=== PATIENT | male | born 1930 | race Caucasian/White ===

== ENCOUNTER 2016-09-17 13:33 | Emergency (ER) | payer MEDICARE, BC ==
[~2016-09-17] VITALS: Ht 188 cm; Wt 65.8 kg
[~2016-09-17 13:33] MED LIST: ACYCLOVIR400 MG ORAL; ARICEPT10 MG ORAL; COLACE100 MG ORAL; COREG3.125 MG ORAL; FOLIC ACID1 MG ORAL; MUPIROCIN22 GM TOPIC; SIMVASTATIN40 MG ORAL; VYTORIN 10-101 EACH ORAL; WARFARIN SODIUM3 MG ORAL; ZYPREXA5 MG ORAL
[2016-09-17 15:22] VITALS: BP 128/72
--- NOTE | 2016-09-17 15:43 | Emergency Room Report ---
History of Present Illness General Chief Complaint: General Complaint Source: Significant Other, Medical Record Present Illness HPI Patient pulled out his G tube. H/O dementia. No reported fevers, vomiting, diarrhea. Occasional agitation. Aphasic - further history unavailable. Allergies: Coded Allergies: No Known Allergies (Unverified , 04/29/14) Patient History Limited by: medical condition Past Medical History: see triage record Social History Narrative [facility] Reviewed Nursing Documentation: PMH: Agreed, PSxH: Agreed Nursing Documentation-PMH Hx Cardiac Problems: Yes Hx Hypertension: Yes Hx Cancer: No Hx Gastrointestinal Problems: Yes Hx Neurological Problems: Yes Hx Alzheimer's Disease: Yes Hx Parkinson's Disease: Yes Hx Weakness: Yes Review of Systems All Other Systems: limited Physical Exam Vital Signs Date Time Temp Pulse Resp B/P Pulse Ox O2 Delivery O2 Flow Rate FiO2 09/17/16 13:18 98.1 78 16 10/80 98 Room Air General Appearance: Chronically Ill Head: normocephalic, atraumatic Eyes: bilateral eye PERRL, bilateral eye normal inspection ENT: moist mucus membranes - poor dentition Neck: full range of motion, supple Respiratory: no respiratory distress, speaking full sentences Cardiovascular #1: regular rate, rhythm Cardiovascular #2: 2+ radial (L) Gastrointestinal: normal bowel sounds, soft, non-distended, other - g tube site clean - some proud tissue Musculoskeletal: no calf tenderness, decreased range of mation - LE with some contractures Neurologic: alert, motor weakness - LE but able to move arms with occ tremor Psychiatric: mood/affect normal - with occasional anxiety Skin: no rash Procedures Additional Procedure Procedure Narrative G tube placement - 16 ga 20 cc balloon Insertion with ease. Medical Decision Making Diagnostic Impression: Primary Impression: Gastrostomy tube replacement Additional Impression: Dementia Qualified Codes: F03.90 - Unspecified dementia without behavioral disturbance ER Course G tube had been pulled. No active bleeding or trauma observed. G tube replaced. Tolerated well. Not toxic or dehydrated. Patient stable for outpatient observation and treatment. Other X-Ray Diagnostic Results Other X-Ray Diagnostic Results : X-Ray Ordered: abd gastgrrograffin Findings: other - no leaks, tube in stomach, NSBGP Number of Views: 1 Last Vital Signs Date Time Temp Pulse Resp B/P Pulse Ox O2 Delivery O2 Flow Rate FiO2 09/17/16 18:21 98.1 84 16 120/69 99 Room Air Status: improved Disposition: XFER SNF Condition: Improved Bi Mar M.D. Sep 17, 2016 15:43
--- NOTE | 2016-09-17 16:44 | Diagnostic Imaging Report ---
Indication: Status post gastrostomy replacement Technique: Supine view of the abdomen after injection of water-soluble contrast into gastrostomy Comparison: 05/01/2014 Findings: Contrast opacifies the stomach and proximal small bowel. No contrast extravasation is demonstrated. The bowel gas pattern is unremarkable. Impression: Satisfactory position of gastrostomy tube
[2016-09-17 18:21] VITALS: BP 120/69
== END 2016-09-17 18:24 ==
LOC: EDBD 13:33 → EMR 17:18
DX: Z43.1 Encounter for attention to gastrostomy (principal); G30.9 Alzheimer's disease, unspecified; F02.80 Dementia in other diseases classified elsewhere, unspecified severity, without behavioral disturbance, psychotic disturbance, mood disturbance, and anxiety; I10 Essential (primary) hypertension; G20 Parkinson's disease
CPT/HCPCS: 74000; 99283; Q9963

== ENCOUNTER 2018-12-15 13:10 | Inpatient (IN) | payer BC, MEDICARE ==
[~2018-12-15] VITALS: Ht 167.6 cm; Wt 68.9 kg
--- NOTE | 2018-12-15 13:05 | NUR ---
ED Nurse Note: Patient brought in by ambulance from [facility] due to jaundice noticed by the staff there today since this morning. patient is alert x0, eyes closed nonverbal, per EMS, that is patient's baseline. sclera is yellow on bilateral side. patient has gtube reported hx of htn gerd dyphagia anemia afib derilium and dementia
[2018-12-15 13:44] LABS: APPEARANCE,URINE SLIGHTLY CLOUDY; BILIRUBIN, URINE 2+ (NEGATIVE); COLOR,URINE BROWN; GLUCOSE, URINE (UA) NEGATIVE (NEGATIVE); HEMATOCRIT 42.1 % (42.0-52.0); HEMOGLOBIN 14.4 G/DL (14.2-18.0); KETONES,URINE NEGATIVE (NEGATIVE); LEUKOCYTE ESTERASE ,URINE 1+ (NEGATIVE); MEAN CORPUSCULAR VOLUME 92 FL (80-99); NITRITE,URINE NEGATIVE (NEGATIVE); PH,URINE 7 (4.5-8.0); PLATELET COUNT 71 K/UL (150-450); PROTEIN,URINE 2+ (NEGATIVE); RED BLOOD COUNT 4.56 M/UL (4.70-6.10); RED CELL DISTRIBUTION WIDTH 12.7 % (11.6-14.8); UROBILINOGEN,URINE 4 MG/DL (0.0-1.0); WHITE BLOOD COUNT 17.9 K/UL (4.8-10.8)
[2018-12-15 13:45] VITALS: BP 127/67
[2018-12-15] MEDS ORDERED: COMPAZINE5 MG GT (13:51)
[2018-12-15] MEDS ORDERED: MORPHINE S10 MG/5 ML SL (13:51)
[2018-12-15] MEDS ORDERED: BISACODYL10 M1 RC (13:51)
[2018-12-15] MEDS ORDERED: ACETAMINOPHEN120 MG RECTAL (13:51)
[2018-12-15] MEDS ORDERED: HYOSCYAMINE0.125 M1 SL (13:51)
[2018-12-15 13:52] LABS: ANION GAP 8 mmol/L (5-15); BLOOD UREA NITROGEN 22 mg/dL (7-18); CALCIUM 9.1 MG/DL (8.5-10.1); CARBON DIOXIDE 31 MMOL/L (21-32); CHLORIDE 103 MMOL/L (98-107); POTASSIUM 3.7 MMOL/L (3.5-5.1); SODIUM 141 MMOL/L (136-145)
[2018-12-15 13:53] LABS: AMMONIA 11 umol/L (11-32)
[2018-12-15 13:55] LABS: INR 1.1 (0.9-1.1)
[2018-12-15] MEDS ORDERED: Piperacillin/Tazobactam 3.375 GM in NS 110 ML IVPB ONE (14:00)
[2018-12-15 14:09] LABS: ALANINE AMINOTRANSFERASE 164 U/L (12-78); ALBUMIN 2.7 G/DL (3.4-5.0); ALBUMIN/GLOBULIN RATIO 0.5 (1.0-2.7); ALKALINE PHOSPHATASE 200 U/L (46-116); ASPARTATE AMINO TRANSFERASE 80 U/L (15-37); BILIRUBIN,TOTAL 5.6 MG/DL (0.2-1.0); CREATINE KINASE 21 U/L (26-308)
[2018-12-15 14:13] LABS: BILIRUBIN,DIRECT 4.7 MG/DL (0.0-0.3)
[2018-12-15 14:16] VITALS: BP 126/73
--- NOTE | 2018-12-15 16:57 | Emergency Room Report ---
History of Present Illness General Chief Complaint: General Complaint Source: Medical Record, EMS Present Illness HPI Patient presents emergency department today complaining of jaundice. Patient apparently was noted to have elevated heart rate and was more jaundiced than usual. Patient baseline is nonverbal. Patient was brought here further evaluation. Patient is full code. No other history is available. Symptoms noted to be severe per caregivers.No other modifying factors. No other associated signs and symptoms. No other complaints were noted. Allergies: Coded Allergies: No Known Allergies (Unverified , 04/29/14) Patient History Past Medical History: HTN, other - Alzheimer's disease, Parkinson's disease Past Surgical History: none Social History: Denies: smoking, alcohol use, drug use Reviewed Nursing Documentation: PMH: Agreed; PSxH: Agreed Nursing Documentation-PMH Past Medical History: No History, Except For Hx Hypertension: Yes Hx Cancer: No Hx Gastrointestinal Problems: Yes Hx Alzheimer's Disease: Yes Hx Parkinson's Disease: Yes Hx Weakness: Yes Review of Systems All Other Systems: limited - Poor mental status Physical Exam Vital Signs Date Time Temp Pulse Resp B/P (MAP) Pulse Ox O2 Delivery O2 Flow Rate FiO2 12/15/18 13:01 99.7 119 24 125/68 94 Nasal Cannula 1.0 Sp02 EP Interpretation: reviewed, normal General Appearance: Stupor Head: atraumatic Eyes: bilateral eye normal inspection ENT: dry mucus membranes Neck: normal inspection, full range of motion, supple, no bony tend Respiratory: normal inspection, lungs clear, normal breath sounds, no respiratory distress, no retraction Cardiovascular #1: regular rate, rhythm, no edema Gastrointestinal: normal inspection, normal bowel sounds, soft, no hernia Genitourinary: other Musculoskeletal: normal range of motion, decreased range of motion Neurologic: other - Unable to assess Psychiatric: other - Unable to assess Skin: normal inspection, normal color, no rash Procedures Critical Care Time Critical Care Time Patient had a critical medical condition which untreated could potentially result in life or limb threatening injury. Total critical care time excluding procedures was approximately 45 minutes. Medical Decision Making Diagnostic Impression: Primary Impression: Jaundice Additional Impressions: Tachycardia Dehydration Severe sepsis ER Course Patient presents emergency department today with jaundice and tachycardia. Differential considerations include sepsis, dehydration, electrolyte abnormality just name a few.Given the severity of the patient's presentation I felt this is a highly complex patient. This patient required extensive workup. Patient's laboratory workup shows an elevated white blood cell count. Patient had elevated bilirubin. Because this patient was started on IV antibiotics. Patient was given fluid boluses per are this severe sepsis protocol. Patient was given broad-spectrum IV antibiotics. Case will be admitted to the telemetry unit for further treatment. Case was discussed with Dr. Ronny Zapata for admission. Labs Test 12/15/18 13:22 White Blood Count 17.9 K/UL (4.8-10.8) Red Blood Count 4.56 M/UL (4.70-6.10) Hemoglobin 14.4 G/DL (14.2-18.0) Hematocrit 42.1 % (42.0-52.0) Mean Corpuscular Volume 92 FL (80-99) Mean Corpuscular Hemoglobin 31.6 PG (27.0-31.0) Mean Corpuscular Hemoglobin Concent 34.3 G/DL (32.0-36.0) Red Cell Distribution Width 12.7 % (11.6-14.8) Platelet Count 71 K/UL (150-450) Mean Platelet Volume 13.9 FL (6.5-10.1) Neutrophils (%) (Auto) % (45.0-75.0) Lymphocytes (%) (Auto) % (20.0-45.0) Monocytes (%) (Auto) % (1.0-10.0) Eosinophils (%) (Auto) % (0.0-3.0) Basophils (%) (Auto) % (0.0-2.0) Differential Total Cells Counted 100 Neutrophils % (Manual) 83 % (45-75) Lymphocytes % (Manual) 6 % (20-45) Monocytes % (Manual) 11 % (1-10) Eosinophils % (Manual) 0 % (0-3) Basophils % (Manual) 0 % (0-2) Band Neutrophils 0 % (0-8) Platelet Estimate Decreased Platelet Morphology Giant Platelets Occasional Red Blood Cell Morphology Normal Prothrombin Time 11.3 SEC (9.30-11.50) Prothromb Time International Ratio 1.1 (0.9-1.1) Activated Partial Thromboplast Time 33 SEC (23-33) Urine Color Brown Urine Appearance Slightly cloudy Urine pH 7 (4.5-8.0) Urine Specific Peterson 1.010 (1.005-1.035) Urine Protein 2+ (NEGATIVE) Urine Glucose (UA) Negative (NEGATIVE) Urine Ketones Negative (NEGATIVE) Urine Blood 4+ (NEGATIVE) Urine Nitrite Negative (NEGATIVE) Urine Bilirubin 2+ (NEGATIVE) Urine Ictotest Positive (NEGATIVE) Urine Urobilinogen 4 MG/DL (0.0-1.0) Urine Leukocyte Esterase 1+ (NEGATIVE) Urine RBC 20-30 /HPF (0 - 0) Urine WBC 2-4 /HPF (0 - 0) Urine Squamous Epithelial Cells Occasional /LPF Urine Bacteria Occasional /HPF (NONE) Sodium Level 141 MMOL/L (136-145) Potassium Level 3.7 MMOL/L (3.5-5.1) Chloride Level 103 MMOL/L (98-107) Carbon Dioxide Level 31 MMOL/L (21-32) Anion Gap 8 mmol/L (5-15) Blood Urea Nitrogen 22 mg/dL (7-18) Creatinine 1.0 MG/DL (0.55-1.30) Estimat Glomerular Filtration Rate mL/min (>60) Glucose Level 145 MG/DL (74-106) Lactic Acid Level 1.80 mmol/L (0.4-2.0) Calcium Level 9.1 MG/DL (8.5-10.1) Total Bilirubin 5.6 MG/DL (0.2-1.0) Direct Bilirubin 4.7 MG/DL (0.0-0.3) Aspartate Amino Transf (AST/SGOT) 80 U/L (15-37) Alanine Aminotransferase (ALT/SGPT) 164 U/L (12-78) Alkaline Phosphatase 200 U/L (46-116) Ammonia 11 umol/L (11-32) Total Creatine Kinase 21 U/L (26-308) Troponin I 0.005 ng/mL (0.000-0.056) Total Protein 8.2 G/DL (6.4-8.2) Albumin 2.7 G/DL (3.4-5.0) Globulin 5.5 g/dL Albumin/Globulin Ratio 0.5 (1.0-2.7) Lipase 1152 U/L (73-393) EKG Diagnostic Results Rate: tachycardiac Rhythm: other - Atrial fibrillation Rhythm Strip Diag. Results EP Interpretation: yes Rate: 130 Rhythm: no PVC's, no ectopy, other - Atrial fibrillation Last Vital Signs Date Time Temp Pulse Resp B/P (MAP) Pulse Ox O2 Delivery O2 Flow Rate FiO2 12/15/18 14:17 117 22 Nasal Cannula 1.0 12/15/18 14:16 101.4 126/73 98 Status: improved Disposition: ADMITTED INPATIENT Condition: Serious Referrals: Luis Donovan MD (PCP) Carmine Mathias MD Dec 15, 2018 16:57
[2018-12-15] MEDS ORDERED: ACETAMINOPHEN650 MG RECTAL (17:38)
[2018-12-15] MEDS ORDERED: DOCUSATE SODIU100 M2 GT (17:43)
[2018-12-15] MEDS ORDERED: MORPHINE S10 MG/0.5 SL (17:59)
--- NOTE | 2018-12-15 19:15 | NUR ---
NURSE NOTES: Received pt from ED, REA Yen. Pt awake and in no acute distress. classroom monitor placed on patient. IV intact and patent. Bed in lowest position and call light within reach. Oriented pt to room and floor.
[2018-12-15 19:25] VITALS: BP 123/69
--- NOTE | 2018-12-15 20:15 | Consultation ---
History of Present Illness General Date patient seen: Dec 15, 2018 Chief Complaint: General Complaint Present Illness HPI This is a 88-year-old male with multiple medical comorbidities who presented to the emergency department for worsening jaundice which was noted by his caregivers. Patient unable to participate in exam given baseline medical condition. Caregivers noted patient was becoming more jaundiced and had him evaluated in the emergency department. In ED he was noted to be febrile, tachycardic, leukocytosis, abnormal LFTs with elevated direct and indirect bilirubin. Likely consistent with cholecystitis/choledocholithiasis. Surgery called to evaluate. Patient seen, patient evaluated, chart reviewed. Allergies: Coded Allergies: No Known Allergies (Unverified , 04/29/14) Medication History Scheduled Docusate Sodium (Docusate Sodium), 100 MG GT TWICE A DAY, (Reported) Scheduled PRN Acetaminophen* (Acetaminophen*), 650 MG RECTAL DAILY PRN for TEMP >101, ( Reported) Bisacodyl (Bisacodyl), 10 MG RC DAILY PRN for Constipation, (Reported) Hyoscyamine Sulfate (Hyoscyamine Sulfate), 0.125 MG SL Q4HR PRN for SECRETION, ( Reported) Morphine Sulfate (Morphine Sulfate), 10 MG SL Q1HR PRN for PAIN/DYSPNEA (RR>26), (Reported) Prochlorperazine Maleate (Compazine), 10 MG GT Q6HR PRN for Nausea & Vomiting, ( Reported) Discontinued Medications Acetaminophen* (Tylenol*), 650 MG RECTAL Q4H PRN for Mild Pain/Temp > 100.5, ( Reported) Discontinued Reason: Prescription changed Carvedilol (Coreg), 6.25 MG ORAL EVERY 12 HOURS Discontinued Reason: Therapy completed Donepezil Hcl* (Aricept*), 10 MG ORAL DAILY, (Reported) Discontinued Reason: Therapy completed Ezetimibe/Simvastatin 10-10MG (Vytorin 10-10 Mg Tablet), 1 TAB ORAL DAILY, ( Reported) Discontinued Reason: Therapy completed Folic Acid* (Folic Acid*), 2 MG ORAL DAILY Discontinued Reason: Therapy completed Morphine 10mg/5ml Oral Soln* (Morphine 10mg/5ml Oral Soln*), 0.5 ML SL Q1HR PRN for PAIN/DYSPNEA (RR>26), (Reported) Discontinued Reason: Prescription changed Patient History Limited by: medical condition History Provided By: Medical Record, Caregiver, PMD Healthcare decision maker Resuscitation status Advanced Directive on File Past Medical/Surgical History Past Medical/Surgical History: (1) Hypernatremia (2) Alteration consciousness (3) Hypernatremia (4) Renal failure (ARF), acute on chronic (5) Encephalopathy (6) Chronic atrial fibrillation (7) Coagulopathy (8) Subdural hematoma (9) Dysphagia (10) Dementia (11) Dehydration (12) Jaundice (13) Tachycardia (14) Severe sepsis Review of Systems ROS Narrative Cannot obtain given patient's baseline medical status Physical Exam General Appearance: no apparent distress Lines, tubes and drains: peripheral HEENT: normocephalic, other - Jaundice Neck: normal inspection Respiratory/Chest: no respiratory distress, no accessory muscle use Cardiovascular/Chest: tachycardia Abdomen: soft, decreased bowel sounds, tender - exhibits discomfort on RUQ palpation , feeding tube Extremities: normal inspection Skin Exam: warm/dry Last 24 Hour Vital Signs Date Time Temp Pulse Resp B/P (MAP) Pulse Ox O2 Delivery O2 Flow Rate FiO2 12/15/18 19:21 99.4 102 22 115/68 98 Nasal Cannula 1.0 12/15/18 14:17 117 22 Nasal Cannula 1.0 12/15/18 14:16 101.4 112 21 126/73 98 Nasal Cannula 1.0 12/15/18 13:45 99.7 117 22 127/67 98 Nasal Cannula 1.0 12/15/18 13:01 99.7 119 24 125/68 94 Nasal Cannula 1.0 Laboratory Tests Test 12/15/18 13:22 White Blood Count 17.9 K/UL (4.8-10.8) H Red Blood Count 4.56 M/UL (4.70-6.10) L Hemoglobin 14.4 G/DL (14.2-18.0) Hematocrit 42.1 % (42.0-52.0) Mean Corpuscular Volume 92 FL (80-99) Mean Corpuscular Hemoglobin 31.6 PG (27.0-31.0) H Mean Corpuscular Hemoglobin Concent 34.3 G/DL (32.0-36.0) Red Cell Distribution Width 12.7 % (11.6-14.8) Platelet Count 71 K/UL (150-450) L Mean Platelet Volume 13.9 FL (6.5-10.1) H Neutrophils (%) (Auto) % (45.0-75.0) Lymphocytes (%) (Auto) % (20.0-45.0) Monocytes (%) (Auto) % (1.0-10.0) Eosinophils (%) (Auto) % (0.0-3.0) Basophils (%) (Auto) % (0.0-2.0) Differential Total Cells Counted 100 Neutrophils % (Manual) 83 % (45-75) H Lymphocytes % (Manual) 6 % (20-45) L Monocytes % (Manual) 11 % (1-10) H Eosinophils % (Manual) 0 % (0-3) Basophils % (Manual) 0 % (0-2) Band Neutrophils 0 % (0-8) Platelet Estimate Decreased L Platelet Morphology Giant Platelets Occasional Red Blood Cell Morphology Normal Prothrombin Time 11.3 SEC (9.30-11.50) Prothromb Time International Ratio 1.1 (0.9-1.1) Activated Partial Thromboplast Time 33 SEC (23-33) Urine Color Brown Urine Appearance Slightly cloudy Urine pH 7 (4.5-8.0) Urine Specific Vest 1.010 (1.005-1.035) Urine Protein 2+ (NEGATIVE) H Urine Glucose (UA) Negative (NEGATIVE) Urine Ketones Negative (NEGATIVE) Urine Blood 4+ (NEGATIVE) H Urine Nitrite Negative (NEGATIVE) Urine Bilirubin 2+ (NEGATIVE) H Urine Ictotest Positive (NEGATIVE) Urine Urobilinogen 4 MG/DL (0.0-1.0) H Urine Leukocyte Esterase 1+ (NEGATIVE) H Urine RBC 20-30 /HPF (0 - 0) H Urine WBC 2-4 /HPF (0 - 0) Urine Squamous Epithelial Cells Occasional /LPF Urine Bacteria Occasional /HPF (NONE) Sodium Level 141 MMOL/L (136-145) Potassium Level 3.7 MMOL/L (3.5-5.1) Chloride Level 103 MMOL/L (98-107) Carbon Dioxide Level 31 MMOL/L (21-32) Anion Gap 8 mmol/L (5-15) Blood Urea Nitrogen 22 mg/dL (7-18) H Creatinine 1.0 MG/DL (0.55-1.30) Estimat Glomerular Filtration Rate mL/min (>60) Glucose Level 145 MG/DL (74-106) H Lactic Acid Level 1.80 mmol/L (0.4-2.0) Calcium Level 9.1 MG/DL (8.5-10.1) Total Bilirubin 5.6 MG/DL (0.2-1.0) H Direct Bilirubin 4.7 MG/DL (0.0-0.3) H Aspartate Amino Transf (AST/SGOT) 80 U/L (15-37) H Alanine Aminotransferase (ALT/SGPT) 164 U/L (12-78) H Alkaline Phosphatase 200 U/L (46-116) H Ammonia 11 umol/L (11-32) Total Creatine Kinase 21 U/L (26-308) L Troponin I 0.005 ng/mL (0.000-0.056) Total Protein 8.2 G/DL (6.4-8.2) Albumin 2.7 G/DL (3.4-5.0) L Globulin 5.5 g/dL Albumin/Globulin Ratio 0.5 (1.0-2.7) L Lipase 1152 U/L (73-393) H Height (Feet): 5 Height (Inches): 6.00 Weight (Pounds): 170 Assessment/Plan Problem List: (1) Cholecystitis ICD Codes: K81.9 - Cholecystitis, unspecified SNOMED: 32053752 (2) Choledocholithiasis ICD Codes: K80.50 - Calculus of bile duct without cholangitis or cholecystitis without obstruction SNOMED: 680413352 (3) Choledocholithiasis with acute cholecystitis Assessment & Plan: 88-year-old male with cholecystitis, choledocholithiasis, leukocytosis, febrile, tachycardic, septic, jaundice. Recommend admit to hospital NPO IV fluids IV Abx GI consult for ERCP evaluation ? MRCP defer to GI US trend labs will likely need cholecystectomy. thank you ICD Codes: K80.42 - Calculus of bile duct with acute cholecystitis without obstruction SNOMED: 73752895 Anand Mcfadden Dec 15, 2018 20:15
--- NOTE | 2018-12-15 23:30 | History and Physical Report ---
DATE OF ADMISSION: 12/15/2018 CHIEF COMPLAINT: Jaundice. HISTORY OF PRESENT ILLNESS: This is an 88-year-old male from a [facility] under my care. I received a call from the nursing staff about the patient becoming jaundiced today. The patient was sent to the emergency department here and he is admitted. The patient is an elderly gentleman with dementia. The current working diagnosis is septicemia. Also, a CT scan of the abdomen has been done and the results are still pending. PAST MEDICAL HISTORY: 1. Organic brain syndrome. 2. Status post subdural hematoma. 3. History of atrial fibrillation. 4. DNR. 5. Status post gastrostomy tube. 6. Hypertensive cardiovascular disease. 7. Tube feeding. MEDICATIONS: Tylenol p.r.n., bisacodyl suppositories, Compazine p.r.n., morphine p.r.n., and stool softener p.r.n. ALLERGIES: No known drug allergies. FAMILY HISTORY: Unable to obtain due to mental status. SOCIAL HISTORY: Unable to obtain due to mental status. REVIEW OF SYSTEMS: Unable to obtain due to mental status. PHYSICAL EXAMINATION: GENERAL: This is an elderly cachectic male, who is in no acute distress. The patient is deeply jaundiced. VITAL SIGNS: Blood pressure 120/70, pulse 110, sinus tachycardia, respirations 24, and temperature 99.7. HEENT: Head is normocephalic and atraumatic. He has very poor oral hygiene. NECK: Supple. Trachea midline. There was no lymphadenopathy or thyromegaly. LUNGS: Bilaterally rhonchi. HEART: Tachycardia. S1 and S2. No rubs, murmurs, or gallops. ABDOMEN: Soft and nontender. Bowel sounds were active. He has diffuse tenderness. He has G-tube. EXTREMITIES: No clubbing, cyanosis, or edema. NEUROLOGICAL: He is confused. There are no gross findings. LABORATORY AND ANCILLARY DATA: CBC, white count 17,000, otherwise within normal limits. Chemistry, BUN 22, creatinine 1, and glucose 145. Total bilirubin 5.6 and direct bilirubin 4.7. ALT 164, AST 80, albumin 2.7, and lipase is 1152. Urinalysis 20 to 30 rbc's and 2 to 4 white blood cells. IMAGING REPORTS: CT scan of the abdomen pending. ASSESSMENT: 1. Acute jaundice, rule out obstructive jaundice, rule out CA mainly of the pancreas. 2. Volume depletion. PLAN: 1. Keep NPO. 2. Intravenous fluid rehydration. 3. Broad-spectrum IV antibiotics. Luis Donovan M.D. DR: NIGEL JOB#: [id number] CC:
[2018-12-16] VITALS: BP 108/64
--- NOTE | 2018-12-16 01:08 | Physician Query ---
Clarification is required for compliance, coding accuracy, and to reflect severity of illness for this patient Dear Dr. Donovan Date:12/16/2018 [address] and place X in appropriate box ED Physician Dr. Mathias documents the diagnosis listed below. Please document your input on following: Patient is admitted with acute jaundice. WBC: 17.9 Temperature: 101.4 HR: 119 Lactic acid: 1.8 Rx: Zosyn Diagnosis: Severe sepsis [ X ] Agree A. [ X] Present on admission B. [ ] Not present on admission C. [ ] Clinically undetermined [ ] Disagree [ ] Ruled out Physician signature Date Please also document in your Progress Notes and/or Discharge Summary and indicate if the condition was present on admission. MTDD
--- NOTE | 2018-12-16 01:20 | NUR ---
NURSE NOTES: Paged Dr. Feliz for Admission orders.
[2018-12-16 04:00] VITALS: BP 122/82
--- NOTE | 2018-12-16 05:58 | NUR ---
NURSE NOTES: Discontinued Left FA IV due to the fact it was no longer patent. Right hand 22g inserted. IV intact and patent.
[2018-12-16] MEDS: 1/2NS w/KCl 20mEq 1000ml 1,000 ML IV SCH ×2 (06:00→18:26)
[2018-12-16 07:01] LABS: BASOPHILS % (AUTO) 0.7 % (0.0-2.0); EOSINOPHILS % (AUTO) 2.1 % (0.0-3.0); HEMATOCRIT 40.4 % (42.0-52.0); HEMOGLOBIN 13.6 G/DL (14.2-18.0); MEAN CORPUSCULAR VOLUME 94 FL (80-99); MONOCYTES % (AUTO) 8.4 % (1.0-10.0); NEUTROPHILS % (AUTO) 71.8 % (45.0-75.0); PLATELET COUNT 139 K/UL (150-450); RED BLOOD COUNT 4.28 M/UL (4.70-6.10); RED CELL DISTRIBUTION WIDTH 13.2 % (11.6-14.8); WHITE BLOOD COUNT 10.2 K/UL (4.8-10.8)
[2018-12-16 07:12] LABS: ALANINE AMINOTRANSFERASE 115 U/L (12-78); ALBUMIN 2.3 G/DL (3.4-5.0); ALKALINE PHOSPHATASE 184 U/L (46-116); AMYLASE 62 U/L (25-115); ANION GAP 10 mmol/L (5-15); ASPARTATE AMINO TRANSFERASE 51 U/L (15-37); BILIRUBIN,DIRECT 3.3 MG/DL (0.0-0.3); BILIRUBIN,TOTAL 4.2 MG/DL (0.2-1.0); BLOOD UREA NITROGEN 24 mg/dL (7-18); CALCIUM 8.7 MG/DL (8.5-10.1); CARBON DIOXIDE 26 MMOL/L (21-32); CHLORIDE 108 MMOL/L (98-107); CREATININE 0.9 MG/DL (0.55-1.30); POTASSIUM 3.7 MMOL/L (3.5-5.1); SODIUM 144 MMOL/L (136-145)
[2018-12-16] MEDS ORDERED: Acetaminophen 650 MG SUPP RECTAL PRN (07:15)
--- NOTE | 2018-12-16 07:29 | NUR ---
CASE MANAGEMENT:REVIEW 88 YR OLD MALE BIBA FROM [facility] CC: JAUNDICED AND TACHYCARDIC SI: SEPSIS. DEHYDRATION 99.6 119 24 125/68 94% ON 1L/NC WBC+17.9 PLT-71 BUN+22 TBILI+5.6 DBILI+4.7 AST/ALT+80/164 LIPASE+1152 IS: 1L NS BOLUS IV ZOSYN BLOOD CX CT ABD/PELVIS CXR NPO : TO TELEMETRY PLAN: SURGICAL CONSULT FOR ACUTE CHOLECYSTITIS INTERQUAL CRITERIA MET
--- NOTE | 2018-12-16 07:39 | NUR ---
NURSE NOTES: Received phone call from Tracie Thompson @[phone]. She stated "I'm the patient's neice and co-POA." Ms. Hodges requested the patient not be given any antibiotics. Paged Dr. Donovan to confirm if indeed is the co-POA. Dr. Donovan called back at 0310 and stated he is not familiar with the person named Tracie and to continue the administration of antibiotic for the patient. Endorsed to day nurse.
--- NOTE | 2018-12-16 07:40 | NUR ---
HAND-OFF: Report given to REA Hackett. Endorsed plan of care.
--- NOTE | 2018-12-16 07:41 | NUR ---
NURSE NOTES: Received report from Lorenzo/RN. Patient asleep, No distress/SOB noted. IV patent running 1/2NS W/20 mEq KCl @65 cc/hr. Call light within reach, Bed in low position. Will continue plan of care.
[2018-12-16 08:00] VITALS: BP 121/81
--- NOTE | 2018-12-16 08:47 | Diagnostic Imaging Report ---
Indication: Abdominal pain and jaundice Technique: Spiral acquisitions obtained through the abdomen and pelvis. No oral contrast utilized, per emergency room physician request No IV contrast utilized, per referring physician request.. Multiplanar reconstructions were generated. Total dose length product 969.13 mGycm. CTDIvol(s) 16.58 mGy. Dose reduction achieved using automated exposure control Comparison: None Findings: The gallbladder contains gallstones. It is mildly distended. The gallbladder wall is thickened, and there is periappendiceal inflammation. Lack of IV contrast limits assessment of the solid organs. The pancreas is unremarkable, but there are prominent peripancreatic lymph nodes noted. The liver, spleen, adrenals are unremarkable. The right kidney demonstrates a lower pole cyst. No renal or ureteral calculi, hydronephrosis, or hydroureter demonstrated. The bladder is unremarkable. The prostate is prominent, contains calcifications. No pelvic mass or adenopathy. No retroperitoneal or mesenteric mass or adenopathy. The rectum is filled with dense stool, although not frankly distended. No evidence of diverticulosis or diverticulitis. There is a gastrostomy in good position. The distal esophagus and duodenum are unremarkable. The appendix is unremarkable. However, there is equivocal slight infiltration of the right lower quadrant mesenteric fat. No free or loculated intraperitoneal gas or fluid. The included lung bases demonstrate posterior dependent atelectatic changes and possible consolidation. The heart is enlarged. Bilateral mild gynecomastia is incidentally noted. The bones demonstrate mild degenerative spondylosis changes. Impression: Cholelithiasis. Thick-walled gallbladder and periappendiceal inflammation are suspicious for acute cholecystitis. No biliary ductal dilatation demonstrated Mildly prominent peripancreatic lymph nodes, possibly reactive related to the above Bilateral basilar pulmonary parenchymal atelectasis and possible consolidation Equivocal slight infiltration of the right lower quadrant mesenteric fat; normal appendix. Significance uncertain if real Cardiomegaly Incidental findings as noted, including gastrostomy,, gynecomastia, degenerative spondylosis, right renal cyst This agrees with the preliminary interpretation provided overnight by [employer] teleradiology service. The CT scanner at [facility] is accredited by the [employer] and the scans are performed using protocols designed to limit radiation exposure to as low as reasonably achievable to attain images of sufficient resolution adequate for diagnostic evaluation.
--- NOTE | 2018-12-16 08:48 | General Progress Note ---
Assessment/Plan Assessment/Plan Labs reviewed. Acute Gallstone pancreatitis. NPO, IVF, IV Abx. Needs ERCP+ [place]. Family Members calling. A sister "wants to stop antibiotics". Non of them DPOAs. Subjective Allergies: Coded Allergies: No Known Allergies (Unverified , 04/29/14) Subjective Confused Objective Last 24 Hour Vital Signs Date Time Temp Pulse Resp B/P (MAP) Pulse Ox O2 Delivery O2 Flow Rate FiO2 12/16/18 04:00 84 12/16/18 04:00 98.2 84 20 122/82 (95) 96 12/16/18 03:23 Nasal Cannula 2.0 12/16/18 00:00 89 12/16/18 00:00 97.3 89 20 108/64 (79) 97 12/15/18 19:25 97.0 90 20 123/69 (87) 100 12/15/18 19:25 90 12/15/18 19:21 99.4 102 22 115/68 98 Nasal Cannula 1.0 12/15/18 14:17 117 22 Nasal Cannula 1.0 12/15/18 14:16 101.4 112 21 126/73 98 Nasal Cannula 1.0 12/15/18 13:45 99.7 117 22 127/67 98 Nasal Cannula 1.0 12/15/18 13:01 99.7 119 24 125/68 94 Nasal Cannula 1.0 Laboratory Tests 12/15/18 13:22: White Blood Count 17.9H, Red Blood Count 4.56L, Hemoglobin 14.4, Hematocrit 42.1 , Mean Corpuscular Volume 92, Mean Corpuscular Hemoglobin 31.6H, Mean Corpuscular Hemoglobin Concent 34.3, Red Cell Distribution Width 12.7, Platelet Count 71L, Mean Platelet Volume 13.9H, Neutrophils (%) (Auto) , Lymphocytes (%) (Auto) , Monocytes (%) (Auto) , Eosinophils (%) (Auto) , Basophils (%) (Auto) , Differential Total Cells Counted 100, Neutrophils % (Manual) 83H, Lymphocytes % (Manual) 6L, Monocytes % (Manual) 11H, Eosinophils % (Manual) 0, Basophils % ( Manual) 0, Band Neutrophils 0, Platelet Estimate DecreasedL, Platelet Morphology , Giant Platelets Occasional, Red Blood Cell Morphology Normal, Prothrombin Time 11.3, Prothromb Time International Ratio 1.1, Activated Partial Thromboplast Time 33, Urine Color Brown, Urine Appearance Slightly cloudy, Urine pH 7, Urine Specific [place] 1.010, Urine Protein 2+H, Urine Glucose (UA) Negative, Urine Ketones Negative, Urine Blood 4+H, Urine Nitrite Negative, Urine Bilirubin 2+H, Urine Ictotest Positive, Urine Urobilinogen 4H, Urine Leukocyte Esterase 1+H, Urine RBC 20-30H, Urine WBC 2-4, Urine Squamous Epithelial Cells Occasional, Urine Bacteria Occasional, Sodium Level 141, Potassium Level 3.7, Chloride Level 103, Carbon Dioxide Level 31, Anion Gap 8, Blood Urea Nitrogen 22H, Creatinine 1.0, Estimat Glomerular Filtration Rate , Glucose Level 145H, Lactic Acid Level 1.80, Calcium Level 9.1, Total Bilirubin 5.6H, Direct Bilirubin 4.7H, Aspartate Amino Transf (AST/SGOT) 80H, Alanine Aminotransferase (ALT/SGPT) 164H, Alkaline Phosphatase 200H, Ammonia 11, Total Creatine Kinase 21L, Troponin I 0.005, Total Protein 8.2, Albumin 2.7L, Globulin 5.5, Albumin/Globulin Ratio 0.5L, Lipase 1152H 12/16/18 06:10: White Blood Count 10.2, Red Blood Count 4.28L, Hemoglobin 13.6L, Hematocrit 40.4L, Mean Corpuscular Volume 94, Mean Corpuscular Hemoglobin 31.7H, Mean Corpuscular Hemoglobin Concent 33.6, Red Cell Distribution Width 13.2, Platelet Count 139#L, Mean Platelet Volume 7.2, Neutrophils (%) (Auto) 71.8, Lymphocytes (%) (Auto) 17.0L, Monocytes (%) (Auto) 8.4, Eosinophils (%) (Auto) 2.1, Basophils (%) (Auto) 0.7, Sodium Level 144, Potassium Level 3.7, Chloride Level 108H, Carbon Dioxide Level 26, Anion Gap 10, Blood Urea Nitrogen 24H, Creatinine 0.9, Estimat Glomerular Filtration Rate , Glucose Level 84, Calcium Level 8.7, Total Bilirubin 4.2H, Direct Bilirubin 3.3H, Aspartate Amino Transf ( AST/SGOT) 51H, Alanine Aminotransferase (ALT/SGPT) 115H, Alkaline Phosphatase 184H, Total Protein 7.6, Albumin 2.3L, Magnesium Level 1.9, Amylase Level 62 Height (Feet): 5 Height (Inches): 6.00 Weight (Pounds): 152 Objective CV RR Lungs CTA Abs Soft, RUQ tenderness. BS + E No CCE Luis Donovan MD Dec 16, 2018 08:48
[2018-12-16] MEDS: Piperacillin/Tazobactam 3.375 GM in NS 110 ML IVPB SCH ×4 (09:12→17:12)
--- NOTE | 2018-12-16 09:13 | NUR ---
NURSE NOTES: Lorenzo/RN reported to me, Family member (Tracie Thompson) called last night to request not to give any antibiotics to the patient. Lorenzo and I confirmed with Dr. Donovan, its okay to give him all his medications.
--- NOTE | 2018-12-16 09:17 | Diagnostic Imaging Report ---
Indication: Cough Technique: One view of the chest Comparison: 04/29/2014 Findings: There is interim development of opacification of the left lung base, likely combination of consolidation and pleural fluid. There is evidence of some right infrahilar consolidation as well. The heart is borderline enlarged. The upper lung may are clear Impression: Bilateral basilar infiltrates and possibly left-sided pleural effusion
[2018-12-16 12:00] VITALS: BP 117/62
[2018-12-16] MEDS: Heparin 5000 units/ml inj SUBQ SCH ×2 (12:00→21:00)
--- NOTE | 2018-12-16 12:25 | GI Initial Consult Note ---
History of Present Illness General Date patient seen: Dec 16, 2018 Time patient seen: 12:17 Reason for Hospitalization: General Complaint Referring physician: CARRINGTON Reason for Consultation: GALLSTONE PANCREATITIS Present Illness HPI Patient presents emergency department today complaining of jaundice. Patient apparently was noted to have elevated heart rate and was more jaundiced than usual. Patient baseline is nonverbal. Patient was brought here further evaluation. Patient is full code. No other history is available. Symptoms noted to be severe per caregivers.No other modifying factors. No other associated signs and symptoms. No other complaints were noted. GI consulted for gallstone pancreatitis. ROS limited, patient nonverbal at baseline. Reported that the patient presented to the emergency department with increased generalized jaundice. Patient has history of PEG placement back in 2013. Abdominal pelvis CT was performed noted the patient had dense stool so the rectum, cholelithiasis with thick-walled gallbladder and dany-appendiceal inflammation suspicious for acute cholecystitis, no biliary ductal dilation. Labs are reviewed; hemoglobin 13.6, AST 51, ALT 115, alkaline phosphatase 184, total bilirubin 4.2, lipase levels of 1152. Home Meds Reported Medications Morphine Sulfate (Morphine Sulfate) 10 Mg/0.5 Ml Syringe, 10 MG SL Q1HR PRN for PAIN/DYSPNEA (RR>26), EA 12/15/18 Docusate Sodium (DOCUSATE SODIUM) 100 Mg Tablet, 100 MG GT TWICE A DAY, TAB HOLD FOR LOOSE BOWEL MOVEMENT 12/15/18 Acetaminophen* (ACETAMINOPHEN*) 650 Mg Supp.rect, 650 MG RECTAL DAILY PRN for TEMP >101, SUPP 12/15/18 Hyoscyamine Sulfate (HYOSCYAMINE SULFATE) 0.125 Mg Tab.subl, 0.125 MG SL Q4HR PRN for SECRETION, TAB 12/15/18 Prochlorperazine Maleate (COMPAZINE) 5 Mg Tablet, 10 MG GT Q6HR PRN for Nausea & Vomiting, TAB 12/15/18 Bisacodyl (BISACODYL) 10 Mg Supp.rect, 10 MG RC DAILY PRN for Constipation, SUPP 12/15/18 Discontinued Reported Medications Morphine 10mg/5ml Oral Soln* (Morphine 10mg/5ml Oral Soln*) 10 Mg/5 Ml Solution , 0.5 ML SL Q1HR PRN for PAIN/DYSPNEA (RR>26), ML 12/15/18 Acetaminophen* (TYLENOL*) 120 Mg Supp.rect, 650 MG RECTAL Q4H PRN for Mild Pain/ Temp > 100.5, SUPP 12/15/18 Ezetimibe/Simvastatin 10-10MG (VYTORIN 10-10 MG TABLET) 1 Each Tablet, 1 TAB ORAL DAILY, TAB 04/29/14 Donepezil Hcl* (ARICEPT*) 10 Mg Tablet, 10 MG ORAL DAILY, TAB 04/29/14 Discontinued Scripts Folic Acid* (FOLIC ACID*) 1 Mg Tab, 2 MG ORAL DAILY for 30 Days, TAB Prov:LORAINE STREETER S N.P. 05/10/14 Carvedilol (Coreg) 3.125 Mg Tab, 6.25 MG ORAL EVERY 12 HOURS, #60 TAB Prov:LORAINE STREETER N.PAnaya 05/10/14 Med list reviewed/reconciled: Yes Allergies: Coded Allergies: No Known Allergies (Unverified , 04/29/14) Patient History Limited by: medical condition History Provided By: Medical Record PMH Narrative Past Medical History: HTN, other - Alzheimer's disease, Parkinson's disease Past Surgical History: none Social History: Denies: smoking, alcohol use, drug use Reviewed Nursing Documentation: PMH: Agreed; PSxH: Agreed Nursing Documentation-PMH Past Medical History: No History, Except For Hx Hypertension: Yes Hx Cancer: No Hx Gastrointestinal Problems: Yes Hx Alzheimer's Disease: Yes Hx Parkinson's Disease: Yes Hx Weakness: Yes Social History: Denies: smoking, alcohol use, drug use, other Review of Systems All Other Systems: limited Physical Exam Vital Signs Date Time Temp Pulse Resp B/P (MAP) Pulse Ox O2 Delivery O2 Flow Rate FiO2 12/15/18 13:01 99.7 119 24 125/68 94 Nasal Cannula 1.0 Sp02 EP Interpretation: reviewed, normal Labs Laboratory Tests Test 12/15/18 13:22 12/16/18 06:10 White Blood Count 17.9 K/UL (4.8-10.8) H 10.2 K/UL (4.8-10.8) Red Blood Count 4.56 M/UL (4.70-6.10) L 4.28 M/UL (4.70-6.10) L Hemoglobin 14.4 G/DL (14.2-18.0) 13.6 G/DL (14.2-18.0) L Hematocrit 42.1 % (42.0-52.0) 40.4 % (42.0-52.0) L Mean Corpuscular Volume 92 FL (80-99) 94 FL (80-99) Mean Corpuscular Hemoglobin 31.6 PG (27.0-31.0) H 31.7 PG (27.0-31.0) H Mean Corpuscular Hemoglobin Concent 34.3 G/DL (32.0-36.0) 33.6 G/DL (32.0-36.0) Red Cell Distribution Width 12.7 % (11.6-14.8) 13.2 % (11.6-14.8) Platelet Count 71 K/UL (150-450) L 139 K/UL (150-450) #L Mean Platelet Volume 13.9 FL (6.5-10.1) H 7.2 FL (6.5-10.1) Neutrophils (%) (Auto) % (45.0-75.0) 71.8 % (45.0-75.0) Lymphocytes (%) (Auto) % (20.0-45.0) 17.0 % (20.0-45.0) L Monocytes (%) (Auto) % (1.0-10.0) 8.4 % (1.0-10.0) Eosinophils (%) (Auto) % (0.0-3.0) 2.1 % (0.0-3.0) Basophils (%) (Auto) % (0.0-2.0) 0.7 % (0.0-2.0) Differential Total Cells Counted 100 Neutrophils % (Manual) 83 % (45-75) H Lymphocytes % (Manual) 6 % (20-45) L Monocytes % (Manual) 11 % (1-10) H Eosinophils % (Manual) 0 % (0-3) Basophils % (Manual) 0 % (0-2) Band Neutrophils 0 % (0-8) Platelet Estimate Decreased L Platelet Morphology Giant Platelets Occasional Red Blood Cell Morphology Normal Prothrombin Time 11.3 SEC (9.30-11.50) Prothromb Time International Ratio 1.1 (0.9-1.1) Activated Partial Thromboplast Time 33 SEC (23-33) Urine Color Brown Urine Appearance Slightly cloudy Urine pH 7 (4.5-8.0) Urine Specific [place] 1.010 (1.005-1.035) Urine Protein 2+ (NEGATIVE) H Urine Glucose (UA) Negative (NEGATIVE) Urine Ketones Negative (NEGATIVE) Urine Blood 4+ (NEGATIVE) H Urine Nitrite Negative (NEGATIVE) Urine Bilirubin 2+ (NEGATIVE) H Urine Ictotest Positive (NEGATIVE) Urine Urobilinogen 4 MG/DL (0.0-1.0) H Urine Leukocyte Esterase 1+ (NEGATIVE) H Urine RBC 20-30 /HPF (0 - 0) H Urine WBC 2-4 /HPF (0 - 0) Urine Squamous Epithelial Cells Occasional /LPF Urine Bacteria Occasional /HPF (NONE) Sodium Level 141 MMOL/L (136-145) 144 MMOL/L (136-145) Potassium Level 3.7 MMOL/L (3.5-5.1) 3.7 MMOL/L (3.5-5.1) Chloride Level 103 MMOL/L (98-107) 108 MMOL/L (98-107) H Carbon Dioxide Level 31 MMOL/L (21-32) 26 MMOL/L (21-32) Anion Gap 8 mmol/L (5-15) 10 mmol/L (5-15) Blood Urea Nitrogen 22 mg/dL (7-18) H 24 mg/dL (7-18) H Creatinine 1.0 MG/DL (0.55-1.30) 0.9 MG/DL (0.55-1.30) Estimat Glomerular Filtration Rate mL/min (>60) mL/min (>60) Glucose Level 145 MG/DL (74-106) H 84 MG/DL (74-106) Lactic Acid Level 1.80 mmol/L (0.4-2.0) Calcium Level 9.1 MG/DL (8.5-10.1) 8.7 MG/DL (8.5-10.1) Total Bilirubin 5.6 MG/DL (0.2-1.0) H 4.2 MG/DL (0.2-1.0) H Direct Bilirubin 4.7 MG/DL (0.0-0.3) H 3.3 MG/DL (0.0-0.3) H Aspartate Amino Transf (AST/SGOT) 80 U/L (15-37) H 51 U/L (15-37) H Alanine Aminotransferase (ALT/SGPT) 164 U/L (12-78) H 115 U/L (12-78) H Alkaline Phosphatase 200 U/L (46-116) H 184 U/L (46-116) H Ammonia 11 umol/L (11-32) Total Creatine Kinase 21 U/L (26-308) L Troponin I 0.005 ng/mL (0.000-0.056) Total Protein 8.2 G/DL (6.4-8.2) 7.6 G/DL (6.4-8.2) Albumin 2.7 G/DL (3.4-5.0) L 2.3 G/DL (3.4-5.0) L Globulin 5.5 g/dL Albumin/Globulin Ratio 0.5 (1.0-2.7) L Lipase 1152 U/L (73-393) H Magnesium Level 1.9 MG/DL (1.8-2.4) Amylase Level 62 U/L (25-115) General Appearance: no apparent distress, alert Head: normocephalic EENT: PERRL/EOMI, normal ENT inspection Neck: supple Respiratory: normal breath sounds, no respiratory distress Cardiovascular: normal rate Gastrointestinal: normal inspection, non tender, soft, normal bowel sounds, non -distended, gt Rectal: deferred Genitourinary: deferred Neurologic: alert, responsive Skin: normal inspection, normal color, no rash, warm/dry, palpation normal, well hydrated Lymphatic: normal inspection, no adenopathy Current Medications Current Medications Medications (Trade) Dose Ordered Sig/Beatris Route PRN Reason Start Time Stop Time Status Last Admin Dose Admin Acetaminophen (Tylenol) 650 mg Q6H PRN RECTAL Mild Pain/Temp > 100.5 12/16/18 07:15 01/15/19 02:29 Heparin Sodium (Porcine) (Heparin 5000 units/ml) 5,000 units EVERY 12 HOURS SUBQ 12/16/18 12:00 01/15/19 11:59 Ondansetron HCl (Zofran) 4 mg Q6H PRN IVP Nausea & Vomiting 12/16/18 02:30 01/15/19 02:29 Piperacillin Sod/ Tazobactam Sod 3.375 gm/Sodium Chloride 110 ml @ 27.5 mls/hr Q8HR IVPB 12/16/18 06:00 12/23/18 05:59 12/16/18 09:12 Sodium 1,000 ml @ 65 mls/hr [id number] IV 12/16/18 02:30 01/15/19 02:29 12/16/18 06:00 GI: Plan Problems: (1) Gastrostomy tube dependent (2) Gallstone pancreatitis (3) Cholecystitis (4) Choledocholithiasis (5) Jaundice (6) Dysphagia (7) Constipation Plan Patient tentatively scheduled for ERCP tomorrow Maintain patient n.p.o. plus IV fluids Will obtain MRCP now Repeat LFTs bowel regime Follow-up surgery for possible cholecystectomy We will follow with additional recommendations post procedure Discussed with Dr. Stewart. Thank you for this patient referral, we will follow. The patient was seen and examined at bedside and all new and available data was reviewed in the patients chart. I agree with the above findings, impression and plan. (Patient seen earlier today. Signature stamp does not reflect patient encounter time.). - MD Tanisha Yee,[facility] [employer] Dec 16, 2018 12:25
--- NOTE | 2018-12-16 15:25 | NUR ---
Social Service Note RENETTA contacted [facility] and received a copy of POLST and POA documents via fax indicating both patient's niece Tracie [phone] and brother Raj [phone] as co-POA. RENETTA spoke with Tracie who lives in [place]. Patient's brother Raj mainly resides in [facility]. Tracie states patient's brother who is 90 struggles with patient approaching end of life. Support provided. Will monitor.
--- NOTE | 2018-12-16 15:30 | NUR ---
NURSE NOTES: Talked with Raj Jay (patient's niece), and she faxed a copy of POA. Placed in chart.
--- NOTE | 2018-12-16 16:07 | NUR ---
*-* INSURANCE *-* CLINICALS AND REVIEWS HAVE BEEN FAXED TO: [employer] FAX ALL CLINICALS TO [phone]
--- NOTE | 2018-12-16 16:15 | Surgery Progress Note ---
Surgery Progress Note Subjective Additional Comments No acute events. MRCP today. Leukocytosis improved. LFTs trending down. Jaundice. Possible ERCP tomorrow Objective Last 24 Hour Vital Signs Date Time Temp Pulse Resp B/P (MAP) Pulse Ox O2 Delivery O2 Flow Rate FiO2 12/16/18 12:00 98.5 99 22 117/62 (80) 97 12/16/18 12:00 92 12/16/18 09:00 Nasal Cannula 2.0 12/16/18 08:00 96 12/16/18 08:00 98.5 114 22 121/81 (94) 99 12/16/18 04:00 84 12/16/18 04:00 98.2 84 20 122/82 (95) 96 12/16/18 03:23 Nasal Cannula 2.0 12/16/18 00:00 89 12/16/18 00:00 97.3 89 20 108/64 (79) 97 12/15/18 19:25 97.0 90 20 123/69 (87) 100 12/15/18 19:25 90 12/15/18 19:21 99.4 102 22 115/68 98 Nasal Cannula 1.0 Drains: other Cardiovascular: RSR Respiratory: clear Abdomen: soft, tenderness, present bowel sounds, non-distended Extremities: no tenderness, no cyanosis Laboratory Tests Test 12/16/18 06:10 White Blood Count 10.2 K/UL (4.8-10.8) Red Blood Count 4.28 M/UL (4.70-6.10) L Hemoglobin 13.6 G/DL (14.2-18.0) L Hematocrit 40.4 % (42.0-52.0) L Mean Corpuscular Volume 94 FL (80-99) Mean Corpuscular Hemoglobin 31.7 PG (27.0-31.0) H Mean Corpuscular Hemoglobin Concent 33.6 G/DL (32.0-36.0) Red Cell Distribution Width 13.2 % (11.6-14.8) Platelet Count 139 K/UL (150-450) #L Mean Platelet Volume 7.2 FL (6.5-10.1) Neutrophils (%) (Auto) 71.8 % (45.0-75.0) Lymphocytes (%) (Auto) 17.0 % (20.0-45.0) L Monocytes (%) (Auto) 8.4 % (1.0-10.0) Eosinophils (%) (Auto) 2.1 % (0.0-3.0) Basophils (%) (Auto) 0.7 % (0.0-2.0) Sodium Level 144 MMOL/L (136-145) Potassium Level 3.7 MMOL/L (3.5-5.1) Chloride Level 108 MMOL/L (98-107) H Carbon Dioxide Level 26 MMOL/L (21-32) Anion Gap 10 mmol/L (5-15) Blood Urea Nitrogen 24 mg/dL (7-18) H Creatinine 0.9 MG/DL (0.55-1.30) Estimat Glomerular Filtration Rate mL/min (>60) Glucose Level 84 MG/DL (74-106) Calcium Level 8.7 MG/DL (8.5-10.1) Magnesium Level 1.9 MG/DL (1.8-2.4) Total Bilirubin 4.2 MG/DL (0.2-1.0) H Direct Bilirubin 3.3 MG/DL (0.0-0.3) H Aspartate Amino Transf (AST/SGOT) 51 U/L (15-37) H Alanine Aminotransferase (ALT/SGPT) 115 U/L (12-78) H Alkaline Phosphatase 184 U/L (46-116) H Total Protein 7.6 G/DL (6.4-8.2) Albumin 2.3 G/DL (3.4-5.0) L Amylase Level 62 U/L (25-115) Plan Problems: (1) Cholecystitis (2) Choledocholithiasis (3) Choledocholithiasis with acute cholecystitis (4) Gallstone pancreatitis Assessment & Plan: 88-year-old male with cholecystitis, choledocholithiasis, gallstone pancreatitis leukocytosis, febrile, tachycardic, septic, jaundice. NPO IV fluids IV Abx ERCP possible tomorrow MRCP US trend labs will likely need cholecystectomy. thank you Anand Mcfadden Dec 16, 2018 16:15
[2018-12-16 16:28] VITALS: BP 119/72
--- NOTE | 2018-12-16 19:20 | NUR ---
HAND-OFF: Report given to Lorenzo/RN, Patient is in stable condition.Endorsed plan of care.
--- NOTE | 2018-12-16 19:21 | NUR ---
NURSE NOTES: Received report from REA Hackett. Pt sleeping and in no acute distress. IV site intact and patent. Bed in lowest position and call light within reach. Will continue with plan of care.
[2018-12-16 20:00] VITALS: BP 118/73
[2018-12-17] VITALS (7 sets, daily range): BP systolic 113–129; BP diastolic 63–77
[2018-12-17] MEDS: Piperacillin/Tazobactam 3.375 GM in NS 110 ML IVPB SCH ×3 (01:20→17:37)
[2018-12-17 05:42] LABS: BASOPHILS % (AUTO) 0.9 % (0.0-2.0); EOSINOPHILS % (AUTO) 3.6 % (0.0-3.0); HEMATOCRIT 36.7 % (42.0-52.0); HEMOGLOBIN 12.1 G/DL (14.2-18.0); LYMPHOCYTES % (AUTO) 25.5 % (20.0-45.0); MEAN CORPUSCULAR VOLUME 94 FL (80-99); MONOCYTES % (AUTO) 8.8 % (1.0-10.0); NEUTROPHILS % (AUTO) 61.2 % (45.0-75.0); PLATELET COUNT 117 K/UL (150-450); RED CELL DISTRIBUTION WIDTH 12.7 % (11.6-14.8)
[2018-12-17 05:58] LABS: POTASSIUM 3.5 MMOL/L (3.5-5.1); SODIUM 146 MMOL/L (136-145)
[2018-12-17 05:59] LABS: ANION GAP 11 mmol/L (5-15); BLOOD UREA NITROGEN 23 mg/dL (7-18); CALCIUM 8.6 MG/DL (8.5-10.1); CARBON DIOXIDE 25 MMOL/L (21-32); CHLORIDE 110 MMOL/L (98-107); CREATININE 0.9 MG/DL (0.55-1.30)
[2018-12-17 06:11] LABS: ALANINE AMINOTRANSFERASE 86 U/L (12-78); ALBUMIN 2.3 G/DL (3.4-5.0); ALKALINE PHOSPHATASE 210 U/L (46-116); ASPARTATE AMINO TRANSFERASE 29 U/L (15-37); BILIRUBIN,DIRECT 2.4 MG/DL (0.0-0.3); BILIRUBIN,TOTAL 3.2 MG/DL (0.2-1.0)
--- NOTE | 2018-12-17 07:15 | NUR ---
HAND-OFF: Report given to REA Hdez. Endorsed plan of care.
--- NOTE | 2018-12-17 07:16 | NUR ---
NURSE NOTES: Report received from REA Johnson. Pt is resting in bed, in semi-gunderson position with no signs and symptoms of distress at this time. Respirations are even and unlabored with 2 Lit Nasal cannula. IV is running at RX dose. Bed is at lowest position, brakes engaged, side rails x2, bed alarm on, call light and bed side table within reach. Will continue to monitor and follow plan of care.
[2018-12-17] MEDS: Heparin 5000 units/ml inj SUBQ SCH ×2 (09:00→21:00)
[2018-12-17] MEDS: 1/2NS w/KCl 20mEq 1000ml 1,000 ML IV SCH ×2 (09:06→19:01)
--- NOTE | 2018-12-17 09:28 | Diagnostic Imaging Report ---
Indication: Jaundice, abdominal pain, abnormal recent CT scan Technique: Coronal and axial single shot fast spin-echo breath-hold, axial T2 FRFSE, 2-D thick slab MRCP, AXIAL 2-D FIESTA fat saturated, axial 3-D dual echo breath-hold, water weighted axial LAVA FLEX, revealed 3-D MRCP images were obtained of the abdomen. MIP reconstructions were generated of the bile ducts Comparison: Reference made to CT abdomen and pelvis 12/15/2018 Findings: Gallstones described on recent CT scan are less evident on the current study, although probably a few small ones are seen layering dependently. There is also some layering of gallbladder sludge. The gallbladder wall appears somewhat diffusely trabeculated. The gallbladder wall is also thickened and there is pericholecystic edema. The common bile duct is mildly ectatic, measuring up to 7 mm in diameter. No definite downstream obstructive lesion is demonstrated. The main right and left intrahepatic ducts are somewhat ectatic. There is an area of narrowing of the common hepatic duct which is smooth and tapered an incompletely obstructive, resulting in approximately 50% diameter narrowing. The axial images demonstrates suggestion of some mild wall thickening in this area. The pancreatic duct appears unremarkable. The liver, pancreas, spleen, adrenals are unremarkable. The right kidney demonstrates multiple cysts. There is a gastrostomy tube in good position. There is evidence of parenchymal disease at both lung bases. Impression: Mild ectasia of the extra hepatic bile ducts and central intrahepatic bile ducts, without definite downstream obstructive lesion Nonspecific smooth tapered narrowing of the common hepatic duct, with suggestion of mild wall thickening. This does not appear to be obstructive. This could represent a mild inflammatory stricture or could be due to mural neoplasm Thick-walled gallbladder, with stones and pericholecystic edema, also described on recent CT scan, and concerning for acute cholecystitis. Consider hepatobiliary nuclear scan for further evaluation as clinically indicated Incidental findings of renal cysts, pulmonary parenchymal disease, gastrostomy Findings previously discussed by phone with Dr. Stewart
--- NOTE | 2018-12-17 10:51 | NUR ---
NURSE NOTES: Shira gomez from GI lab stated that Dr. Goldman Cancelled the ERCP for today, we still need to keep the patient NPO.
--- NOTE | 2018-12-17 11:02 | Surgery Progress Note ---
Surgery Progress Note Subjective Additional Comments leukocytosis resolved. lft's and t bili improved. MRCP noted. no obstruction in CBD. ERCP cancelled Objective Last 24 Hour Vital Signs Date Time Temp Pulse Resp B/P (MAP) Pulse Ox O2 Delivery O2 Flow Rate FiO2 12/17/18 09:00 Nasal Cannula 2.0 12/17/18 08:00 86 12/17/18 08:00 97.7 95 20 113/63 (80) 95 12/17/18 04:00 79 12/17/18 04:00 97.2 79 20 115/68 (84) 96 12/17/18 00:00 90 12/17/18 00:00 98.0 90 18 117/77 (90) 97 12/16/18 21:00 Nasal Cannula 2.0 12/16/18 20:00 98.4 90 20 118/73 (88) 99 12/16/18 20:00 90 12/16/18 16:28 98.2 98 22 119/72 (88) 97 12/16/18 16:00 113 12/16/18 12:00 98.5 99 22 117/62 (80) 97 12/16/18 12:00 92 Drains: other Cardiovascular: RSR Respiratory: clear Abdomen: soft, tenderness, present bowel sounds, non-distended, decreased bowel sounds Extremities: no tenderness, no cyanosis Laboratory Tests Test 12/17/18 04:54 White Blood Count 6.0 K/UL (4.8-10.8) Red Blood Count 3.90 M/UL (4.70-6.10) L Hemoglobin 12.1 G/DL (14.2-18.0) L Hematocrit 36.7 % (42.0-52.0) L Mean Corpuscular Volume 94 FL (80-99) Mean Corpuscular Hemoglobin 31.1 PG (27.0-31.0) H Mean Corpuscular Hemoglobin Concent 33.1 G/DL (32.0-36.0) Red Cell Distribution Width 12.7 % (11.6-14.8) Platelet Count 117 K/UL (150-450) L Mean Platelet Volume 8.6 FL (6.5-10.1) Neutrophils (%) (Auto) 61.2 % (45.0-75.0) Lymphocytes (%) (Auto) 25.5 % (20.0-45.0) Monocytes (%) (Auto) 8.8 % (1.0-10.0) Eosinophils (%) (Auto) 3.6 % (0.0-3.0) H Basophils (%) (Auto) 0.9 % (0.0-2.0) Prothrombin Time 10.4 SEC (9.30-11.50) Prothromb Time International Ratio 1.0 (0.9-1.1) Activated Partial Thromboplast Time 31 SEC (23-33) Sodium Level 146 MMOL/L (136-145) H Potassium Level 3.5 MMOL/L (3.5-5.1) Chloride Level 110 MMOL/L (98-107) H Carbon Dioxide Level 25 MMOL/L (21-32) Anion Gap 11 mmol/L (5-15) Blood Urea Nitrogen 23 mg/dL (7-18) H Creatinine 0.9 MG/DL (0.55-1.30) Estimat Glomerular Filtration Rate mL/min (>60) Glucose Level 72 MG/DL (74-106) L Calcium Level 8.6 MG/DL (8.5-10.1) Total Bilirubin 3.2 MG/DL (0.2-1.0) H Direct Bilirubin 2.4 MG/DL (0.0-0.3) H Aspartate Amino Transf (AST/SGOT) 29 U/L (15-37) Alanine Aminotransferase (ALT/SGPT) 86 U/L (12-78) H Alkaline Phosphatase 210 U/L (46-116) H Total Protein 6.5 G/DL (6.4-8.2) Albumin 2.3 G/DL (3.4-5.0) L Plan Problems: (1) Cholecystitis (2) Choledocholithiasis (3) Choledocholithiasis with acute cholecystitis (4) Gallstone pancreatitis Assessment & Plan: 88-year-old male with cholecystitis, choledocholithiasis, gallstone pancreatitis leukocytosis, febrile, tachycardic, septic, jaundice. NPO IV fluids IV Abx ERCP cancelled as MRCP without CBD obstruction US trend labs will likely need cholecystectomy. thank you Anand Mcfadden Dec 17, 2018 11:01
--- NOTE | 2018-12-17 11:28 | NUR ---
HAND-OFF: Report given to REA Grier.
--- NOTE | 2018-12-17 12:10 | GI Progress Note ---
Assessment/Plan Problems: (1) Gallstone pancreatitis ICD Codes: K85.10 - Biliary acute pancreatitis without necrosis or infection SNOMED: 74859853 (2) Constipation ICD Codes: K59.00 - Constipation, unspecified SNOMED: 87150019 (3) Dysphagia ICD Codes: R13.10 - Dysphagia SNOMED: 52378179 (4) Dementia ICD Codes: F03.90 - Dementia SNOMED: 25074366 (5) Jaundice ICD Codes: R17 - Unspecified jaundice SNOMED: 85449825 (6) Dehydration ICD Codes: E86.0 - Dehydration SNOMED: 83546756 Status: unchanged Status Narrative Discussed with Dr. Stewart Assessment/Plan MRCP noted, common bile duct dilation of 7 mm with no stones noted. ERCP canceled, follow-up surgical recommendations for possible cholecystectomy Diet per surgery LFTs Bowel regimen PPI PRN transfusion Follow labs The patient was seen and examined at bedside and all new and available data was reviewed in the patients chart. I agree with the above findings, impression and plan. (Patient seen earlier today. Signature stamp does not reflect patient encounter time.). - Rebel Stewart MD Subjective Gastrointestinal/Abdominal: Reports: no symptoms Subjective Limited Objective Last 24 Hour Vital Signs Date Time Temp Pulse Resp B/P (MAP) Pulse Ox O2 Delivery O2 Flow Rate FiO2 12/17/18 12:00 97.2 93 20 124/70 (88) 96 12/17/18 09:00 Nasal Cannula 2.0 12/17/18 08:00 86 12/17/18 08:00 97.7 95 20 113/63 (80) 95 12/17/18 04:00 79 12/17/18 04:00 97.2 79 20 115/68 (84) 96 12/17/18 00:00 90 12/17/18 00:00 98.0 90 18 117/77 (90) 97 12/16/18 21:00 Nasal Cannula 2.0 12/16/18 20:00 98.4 90 20 118/73 (88) 99 12/16/18 20:00 90 12/16/18 16:28 98.2 98 22 119/72 (88) 97 12/16/18 16:00 113 Laboratory Tests Test 12/17/18 04:54 White Blood Count 6.0 K/UL (4.8-10.8) Red Blood Count 3.90 M/UL (4.70-6.10) L Hemoglobin 12.1 G/DL (14.2-18.0) L Hematocrit 36.7 % (42.0-52.0) L Mean Corpuscular Volume 94 FL (80-99) Mean Corpuscular Hemoglobin 31.1 PG (27.0-31.0) H Mean Corpuscular Hemoglobin Concent 33.1 G/DL (32.0-36.0) Red Cell Distribution Width 12.7 % (11.6-14.8) Platelet Count 117 K/UL (150-450) L Mean Platelet Volume 8.6 FL (6.5-10.1) Neutrophils (%) (Auto) 61.2 % (45.0-75.0) Lymphocytes (%) (Auto) 25.5 % (20.0-45.0) Monocytes (%) (Auto) 8.8 % (1.0-10.0) Eosinophils (%) (Auto) 3.6 % (0.0-3.0) H Basophils (%) (Auto) 0.9 % (0.0-2.0) Prothrombin Time 10.4 SEC (9.30-11.50) Prothromb Time International Ratio 1.0 (0.9-1.1) Activated Partial Thromboplast Time 31 SEC (23-33) Sodium Level 146 MMOL/L (136-145) H Potassium Level 3.5 MMOL/L (3.5-5.1) Chloride Level 110 MMOL/L (98-107) H Carbon Dioxide Level 25 MMOL/L (21-32) Anion Gap 11 mmol/L (5-15) Blood Urea Nitrogen 23 mg/dL (7-18) H Creatinine 0.9 MG/DL (0.55-1.30) Estimat Glomerular Filtration Rate mL/min (>60) Glucose Level 72 MG/DL (74-106) L Calcium Level 8.6 MG/DL (8.5-10.1) Total Bilirubin 3.2 MG/DL (0.2-1.0) H Direct Bilirubin 2.4 MG/DL (0.0-0.3) H Aspartate Amino Transf (AST/SGOT) 29 U/L (15-37) Alanine Aminotransferase (ALT/SGPT) 86 U/L (12-78) H Alkaline Phosphatase 210 U/L (46-116) H Total Protein 6.5 G/DL (6.4-8.2) Albumin 2.3 G/DL (3.4-5.0) L Height (Feet): 5 Height (Inches): 6.00 Weight (Pounds): 152 General Appearance: WD/WN, no apparent distress, alert, other - Generalized jaundice Cardiovascular: normal rate Respiratory/Chest: normal breath sounds, no respiratory distress Abdominal Exam: normal bowel sounds, non tender, soft Extremities: non-tender Patrick Garay SYSTEMS PROGRAMMER Dec 17, 2018 12:10
--- NOTE | 2018-12-17 13:04 | NUR ---
CASE MANAGEMENT:REVIEW 12/17/18 SI: CHOLEDOCHOLITHIASIS W/ACUTE CHOLECYSTITIS MRCP (-) CBD OBSTRUCTION 97.2 93 20 124/70 96% ON 2L/NC H/H-12.1/36.7 PLT-117 TBILI+3.2 DBILI+2.4 IS: IV ZOSYN Q8HRS IVF@65/HR HEPARIN SQ Q12 : TELEMETRY STATUS DCP: [facility]
--- NOTE | 2018-12-17 13:51 | NUR ---
*-* INSURANCE *-* CLINICALS AND REVIEWS HAVE BEEN FAXED TO: [employer] FAX ALL CLINICALS TO [phone]
--- NOTE | 2018-12-17 15:54 | General Progress Note ---
Assessment/Plan Assessment/Plan Labs reviewed. Acute Gallstone pancreatitis. NPO, IVF, IV Abx. No needs for ERCP. MRCP shows passed stones. No need for [place]. To continue IV Abx only. DW Dr. Puga. Subjective Allergies: Coded Allergies: No Known Allergies (Unverified , 04/29/14) Subjective Confused Objective Last 24 Hour Vital Signs Date Time Temp Pulse Resp B/P (MAP) Pulse Ox O2 Delivery O2 Flow Rate FiO2 12/17/18 12:00 97.2 93 20 124/70 (88) 96 12/17/18 11:39 85 12/17/18 09:00 Nasal Cannula 2.0 12/17/18 08:00 86 12/17/18 08:00 97.7 95 20 113/63 (80) 95 12/17/18 04:00 79 12/17/18 04:00 97.2 79 20 115/68 (84) 96 12/17/18 00:00 90 12/17/18 00:00 98.0 90 18 117/77 (90) 97 12/16/18 21:00 Nasal Cannula 2.0 12/16/18 20:00 98.4 90 20 118/73 (88) 99 12/16/18 20:00 90 12/16/18 16:28 98.2 98 22 119/72 (88) 97 12/16/18 16:00 113 Laboratory Tests 12/17/18 04:54: White Blood Count 6.0, Red Blood Count 3.90L, Hemoglobin 12.1L, Hematocrit 36.7L , Mean Corpuscular Volume 94, Mean Corpuscular Hemoglobin 31.1H, Mean Corpuscular Hemoglobin Concent 33.1, Red Cell Distribution Width 12.7, Platelet Count 117L, Mean Platelet Volume 8.6, Neutrophils (%) (Auto) 61.2, Lymphocytes ( %) (Auto) 25.5, Monocytes (%) (Auto) 8.8, Eosinophils (%) (Auto) 3.6H, Basophils (%) (Auto) 0.9, Prothrombin Time 10.4, Prothromb Time International Ratio 1.0, Activated Partial Thromboplast Time 31, Sodium Level 146H, Potassium Level 3.5, Chloride Level 110H, Carbon Dioxide Level 25, Anion Gap 11, Blood Urea Nitrogen 23H, Creatinine 0.9, Estimat Glomerular Filtration Rate , Glucose Level 72L, Calcium Level 8.6, Total Bilirubin 3.2H, Direct Bilirubin 2.4H, Aspartate Amino Transf (AST/SGOT) 29, Alanine Aminotransferase (ALT/SGPT) 86H, Alkaline Phosphatase 210H, Total Protein 6.5, Albumin 2.3L Height (Feet): 5 Height (Inches): 6.00 Weight (Pounds): 152 Objective CV RR Lungs CTA Abs Soft, RUQ tenderness. BS + E No CCE Luis Donovan MD Dec 17, 2018 15:54
--- NOTE | 2018-12-17 19:30 | NUR ---
NURSE NOTES: Received pt. and report from REA Grier. Observe pt. resting in bed with both eyes closed. 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 Bed is in the lowest position and locked, call light within reach. Pt. is NPO per doctor's order. No signs and symptoms of acute distress noted at this time. Will continue plan of care.
--- NOTE | 2018-12-17 19:39 | NUR ---
HAND-OFF: Report given to Lea Long.
[2018-12-18] VITALS: BP_SYST 122; BP_SYST 128; BP_DIAS 65; BP_DIAS 68
[2018-12-18] MEDS: Piperacillin/Tazobactam 3.375 GM in NS 110 ML IVPB SCH ×3 (00:58→16:10)
--- NOTE | 2018-12-18 02:50 | NUR ---
NURSE NOTES: Received pt from REA BERG. pt in stable condition, no acute distress noted. will continue to monitor.
--- NOTE | 2018-12-18 02:55 | NUR ---
HAND-OFF: Report given to REA Valente. Pt. is in stable condition.
[2018-12-18 04:00] VITALS: BP 104/69
[2018-12-18 06:07] LABS: BASOPHILS % (AUTO) 1.2 % (0.0-2.0); EOSINOPHILS % (AUTO) 4.3 % (0.0-3.0); HEMATOCRIT 32.7 % (42.0-52.0); MEAN CORPUSCULAR VOLUME 94 FL (80-99); MONOCYTES % (AUTO) 9.3 % (1.0-10.0); NEUTROPHILS % (AUTO) 56.2 % (45.0-75.0); PLATELET COUNT 107 K/UL (150-450); RED BLOOD COUNT 3.49 M/UL (4.70-6.10); RED CELL DISTRIBUTION WIDTH 12.8 % (11.6-14.8); WHITE BLOOD COUNT 5.3 K/UL (4.8-10.8)
[2018-12-18 06:34] LABS: ALANINE AMINOTRANSFERASE 55 U/L (12-78); ALBUMIN 2.1 G/DL (3.4-5.0); ALBUMIN/GLOBULIN RATIO 0.4 (1.0-2.7); ALKALINE PHOSPHATASE 231 U/L (46-116); ANION GAP 10 mmol/L (5-15); ASPARTATE AMINO TRANSFERASE 25 U/L (15-37); BILIRUBIN,TOTAL 2.3 MG/DL (0.2-1.0); BLOOD UREA NITROGEN 20 mg/dL (7-18); CALCIUM 8.4 MG/DL (8.5-10.1); CARBON DIOXIDE 24 MMOL/L (21-32); CHLORIDE 109 MMOL/L (98-107); CREATININE 0.9 MG/DL (0.55-1.30); POTASSIUM 3.8 MMOL/L (3.5-5.1); SODIUM 143 MMOL/L (136-145)
[2018-12-18 06:39] LABS: BILIRUBIN,DIRECT 1.5 MG/DL (0.0-0.3)
--- NOTE | 2018-12-18 07:25 | NUR ---
NURSE NOTES: I received the patient resting in bed. Patient is non-verbal. Bed in the lowest position and call light within reach. Patient does not display any signs of distress. I will continue to monitor the patient and implement care.
--- NOTE | 2018-12-18 07:42 | NUR ---
HAND-OFF: Report given to Brie Long. pt remains in stable condition.
[2018-12-18 08:00] VITALS: BP 111/51
--- NOTE | 2018-12-18 08:46 | NUR ---
CASE MANAGEMENT:REVIEW 12/18/18 SI: CHOLEDOCHOLITHIASIS W/ACUTE CHOLECYSTITIS MRCP (-) CBD OBSTRUCTION T 98.1 HR 56 RR 20 B/P 111/51 SATS 97% ON 2L/NC CL 109 BUN 20 GLU 73 CA 8.4 TBILI 2.3 DBILI 1.5 ALP 231 IS: IV ZOSYN Q8HRS IVF@65 mL/HR HEPARIN SUBQ Q12H : TELEMETRY STATUS DCP: [facility]
[2018-12-18] MEDS: Heparin 5000 units/ml inj SUBQ SCH ×2 (08:47→21:00)
[2018-12-18 11:42] VITALS: BP 111/63
--- NOTE | 2018-12-18 13:01 | General Progress Note ---
Assessment/Plan Problem List: (1) Gastrostomy complication ICD Codes: K94.20 - Gastrostomy complication, unspecified SNOMED: 820314445 (2) Alzheimer disease ICD Codes: G30.9 - Alzheimer's disease, unspecified; F02.80 - Dementia in other diseases classified elsewhere without behavioral disturbance SNOMED: 14071886 (3) Chronic atrial fibrillation ICD Codes: I48.2 - Chronic atrial fibrillation SNOMED: 883882600 (4) Alteration consciousness ICD Codes: R40.4 - Transient alteration of awareness SNOMED: 7725826 (5) Cholecystitis ICD Codes: K81.9 - Cholecystitis, unspecified SNOMED: 32006442 (6) Gallstone pancreatitis ICD Codes: K85.10 - Biliary acute pancreatitis without necrosis or infection SNOMED: 66696656 Assessment/Plan npo , hydration, iv atb Subjective ROS Limited/Unobtainable: Yes Allergies: Coded Allergies: No Known Allergies (Unverified , 04/29/14) Objective Last 24 Hour Vital Signs Date Time Temp Pulse Resp B/P (MAP) Pulse Ox O2 Delivery O2 Flow Rate FiO2 12/18/18 11:54 67 12/18/18 11:42 98.1 68 18 111/63 (79) 100 12/18/18 09:00 Nasal Cannula 2.0 12/18/18 08:00 98.1 56 20 111/51 (71) 97 12/18/18 07:43 81 12/18/18 04:00 98.2 89 15 104/69 (81) 98 12/18/18 04:00 108 12/18/18 00:00 89 12/18/18 00:00 98.5 92 17 122/65 (84) 98 12/17/18 21:00 Nasal Cannula 2.0 12/17/18 20:00 98.1 91 17 127/71 (89) 99 12/17/18 20:00 83 12/17/18 16:00 98.3 89 20 125/76 (92) 100 12/17/18 15:59 87 Intake and Output 12/17/18 12/18/18 18:59 06:59 Intake Total 780 ml 585 ml Balance 780 ml 585 ml Intake IV Total 780 ml 585 ml # Voids 3 2 # Bowel Movements 1 Laboratory Tests 12/18/18 05:38: White Blood Count 5.3, Red Blood Count 3.49L, Hemoglobin 11.0L, Hematocrit 32.7L , Mean Corpuscular Volume 94, Mean Corpuscular Hemoglobin 31.6H, Mean Corpuscular Hemoglobin Concent 33.7, Red Cell Distribution Width 12.8, Platelet Count 107L, Mean Platelet Volume 8.8, Neutrophils (%) (Auto) 56.2, Lymphocytes ( %) (Auto) 29.0, Monocytes (%) (Auto) 9.3, Eosinophils (%) (Auto) 4.3H, Basophils (%) (Auto) 1.2, Sodium Level 143, Potassium Level 3.8, Chloride Level 109H, Carbon Dioxide Level 24, Anion Gap 10, Blood Urea Nitrogen 20H, Creatinine 0.9, Estimat Glomerular Filtration Rate , Glucose Level 73L, Calcium Level 8.4L, Magnesium Level 1.8, Total Bilirubin 2.3H, Direct Bilirubin 1.5H, Aspartate Amino Transf (AST/SGOT) 25, Alanine Aminotransferase (ALT/SGPT) 55, Alkaline Phosphatase 231H, Total Protein 6.8, Albumin 2.1L, Globulin 4.7, Albumin/Globulin Ratio 0.4L Height (Feet): 5 Height (Inches): 6.00 Weight (Pounds): 152 General Appearance: lethargic, confused EENT: other - mouth breather Neck: non-tender Cardiovascular: regularly irregular Respiratory/Chest: lungs clear Abdomen: non tender, soft Edema: no edema noted Arm (L), no edema noted Arm (R), no edema noted Leg (L), no edema noted Leg (R), no edema noted Pedal (L), no edema noted Pedal (R), no edema noted Generalized Neurologic: disoriented, other - paucity of movement Cresencio Acosta MD Dec 18, 2018 13:01
--- NOTE | 2018-12-18 13:59 | General Progress Note ---
Assessment/Plan Assessment/Plan (1) Gallstone pancreatitis ICD Codes: K85.10 - Biliary acute pancreatitis without necrosis or infection SNOMED: 02730270 (2) Constipation ICD Codes: K59.00 - Constipation, unspecified SNOMED: 84621291 (3) Dysphagia ICD Codes: R13.10 - Dysphagia SNOMED: 27967343 (4) Dementia ICD Codes: F03.90 - Dementia SNOMED: 24970962 (5) Jaundice ICD Codes: R17 - Unspecified jaundice SNOMED: 61132968 (6) Dehydration ICD Codes: E86.0 - Dehydration SNOMED: 63611353 Status: unchanged Assessment/Plan MRCP noted, common bile duct dilation of 7 mm with no stones noted. ERCP canceled, follow-up surgical recommendations for possible cholecystectomy Diet per surgery LFTs Bowel regimen PPI PRN transfusion Follow labs Subjective Allergies: Coded Allergies: No Known Allergies (Unverified , 04/29/14) Subjective minimally interactive no events overnight Objective Last 24 Hour Vital Signs Date Time Temp Pulse Resp B/P (MAP) Pulse Ox O2 Delivery O2 Flow Rate FiO2 12/18/18 11:54 67 12/18/18 11:42 98.1 68 18 111/63 (79) 100 12/18/18 09:00 Nasal Cannula 2.0 12/18/18 08:00 98.1 56 20 111/51 (71) 97 12/18/18 07:43 81 12/18/18 04:00 98.2 89 15 104/69 (81) 98 12/18/18 04:00 108 12/18/18 00:00 89 12/18/18 00:00 98.5 92 17 122/65 (84) 98 12/17/18 21:00 Nasal Cannula 2.0 12/17/18 20:00 98.1 91 17 127/71 (89) 99 12/17/18 20:00 83 12/17/18 16:00 98.3 89 20 125/76 (92) 100 12/17/18 15:59 87 Intake and Output 12/17/18 12/18/18 18:59 06:59 Intake Total 780 ml 585 ml Balance 780 ml 585 ml Intake IV Total 780 ml 585 ml # Voids 3 2 # Bowel Movements 1 Laboratory Tests 12/18/18 05:38: White Blood Count 5.3, Red Blood Count 3.49L, Hemoglobin 11.0L, Hematocrit 32.7L , Mean Corpuscular Volume 94, Mean Corpuscular Hemoglobin 31.6H, Mean Corpuscular Hemoglobin Concent 33.7, Red Cell Distribution Width 12.8, Platelet Count 107L, Mean Platelet Volume 8.8, Neutrophils (%) (Auto) 56.2, Lymphocytes ( %) (Auto) 29.0, Monocytes (%) (Auto) 9.3, Eosinophils (%) (Auto) 4.3H, Basophils (%) (Auto) 1.2, Sodium Level 143, Potassium Level 3.8, Chloride Level 109H, Carbon Dioxide Level 24, Anion Gap 10, Blood Urea Nitrogen 20H, Creatinine 0.9, Estimat Glomerular Filtration Rate , Glucose Level 73L, Calcium Level 8.4L, Magnesium Level 1.8, Total Bilirubin 2.3H, Direct Bilirubin 1.5H, Aspartate Amino Transf (AST/SGOT) 25, Alanine Aminotransferase (ALT/SGPT) 55, Alkaline Phosphatase 231H, Total Protein 6.8, Albumin 2.1L, Globulin 4.7, Albumin/Globulin Ratio 0.4L Height (Feet): 5 Height (Inches): 6.00 Weight (Pounds): 152 Objective Elderly man NAD minimally interactive CTA RR Abd soft, (+) GT no edema Michael Jaimes MD Dec 18, 2018 13:59
--- NOTE | 2018-12-18 15:43 | Surgery Progress Note ---
Surgery Progress Note Subjective Additional Comments no acute events. no n/v/f/c. labs improved Objective Last 24 Hour Vital Signs Date Time Temp Pulse Resp B/P (MAP) Pulse Ox O2 Delivery O2 Flow Rate FiO2 12/18/18 11:54 67 12/18/18 11:42 98.1 68 18 111/63 (79) 100 12/18/18 09:00 Nasal Cannula 2.0 12/18/18 08:00 98.1 56 20 111/51 (71) 97 12/18/18 07:43 81 12/18/18 04:00 98.2 89 15 104/69 (81) 98 12/18/18 04:00 108 12/18/18 00:00 89 12/18/18 00:00 98.5 92 17 122/65 (84) 98 12/17/18 21:00 Nasal Cannula 2.0 12/17/18 20:00 98.1 91 17 127/71 (89) 99 12/17/18 20:00 83 12/17/18 16:00 98.3 89 20 125/76 (92) 100 12/17/18 15:59 87 I&O Intake and Output 12/17/18 12/18/18 18:59 06:59 Intake Total 780 ml 585 ml Balance 780 ml 585 ml Intake IV Total 780 ml 585 ml # Voids 3 2 # Bowel Movements 1 Cardiovascular: RSR Respiratory: clear Abdomen: soft, present bowel sounds, non-distended Extremities: no tenderness, no cyanosis Laboratory Tests Test 12/18/18 05:38 White Blood Count 5.3 K/UL (4.8-10.8) Red Blood Count 3.49 M/UL (4.70-6.10) L Hemoglobin 11.0 G/DL (14.2-18.0) L Hematocrit 32.7 % (42.0-52.0) L Mean Corpuscular Volume 94 FL (80-99) Mean Corpuscular Hemoglobin 31.6 PG (27.0-31.0) H Mean Corpuscular Hemoglobin Concent 33.7 G/DL (32.0-36.0) Red Cell Distribution Width 12.8 % (11.6-14.8) Platelet Count 107 K/UL (150-450) L Mean Platelet Volume 8.8 FL (6.5-10.1) Neutrophils (%) (Auto) 56.2 % (45.0-75.0) Lymphocytes (%) (Auto) 29.0 % (20.0-45.0) Monocytes (%) (Auto) 9.3 % (1.0-10.0) Eosinophils (%) (Auto) 4.3 % (0.0-3.0) H Basophils (%) (Auto) 1.2 % (0.0-2.0) Sodium Level 143 MMOL/L (136-145) Potassium Level 3.8 MMOL/L (3.5-5.1) Chloride Level 109 MMOL/L (98-107) H Carbon Dioxide Level 24 MMOL/L (21-32) Anion Gap 10 mmol/L (5-15) Blood Urea Nitrogen 20 mg/dL (7-18) H Creatinine 0.9 MG/DL (0.55-1.30) Estimat Glomerular Filtration Rate mL/min (>60) Glucose Level 73 MG/DL (74-106) L Calcium Level 8.4 MG/DL (8.5-10.1) L Magnesium Level 1.8 MG/DL (1.8-2.4) Total Bilirubin 2.3 MG/DL (0.2-1.0) H Direct Bilirubin 1.5 MG/DL (0.0-0.3) H Aspartate Amino Transf (AST/SGOT) 25 U/L (15-37) Alanine Aminotransferase (ALT/SGPT) 55 U/L (12-78) Alkaline Phosphatase 231 U/L (46-116) H Total Protein 6.8 G/DL (6.4-8.2) Albumin 2.1 G/DL (3.4-5.0) L Globulin 4.7 g/dL Albumin/Globulin Ratio 0.4 (1.0-2.7) L Plan Problems: (1) Cholecystitis (2) Choledocholithiasis (3) Choledocholithiasis with acute cholecystitis (4) Gallstone pancreatitis Assessment & Plan: 88-year-old male with cholecystitis, choledocholithiasis, gallstone pancreatitis leukocytosis, febrile, tachycardic, septic, jaundice. okay to trail feeds IV fluids IV Abx ERCP cancelled as MRCP without CBD obstruction trend labs leukocytosis resolved. labs improving. MRI noted. given age, history, clinical improvement, likely hold on cholecystectomy. cont medical management will follow with recs thank you Anand Mcfadden Dec 18, 2018 15:43
[2018-12-18 15:50] VITALS: BP 125/66
[2018-12-18] MEDS: 1/2NS w/KCl 20mEq 1000ml 1,000 ML IV SCH (16:04)
--- NOTE | 2018-12-18 19:13 | NUR ---
HAND-OFF: Report given to REA Raphael.
--- NOTE | 2018-12-18 19:14 | NUR ---
NURSE NOTES: Received pt from REA Baird. Pt awake and resting. IV sites intact and patent. Bed in lowest position and call light within reach. Will continue with plan of care.
[2018-12-18 20:00] VITALS: BP 125/82
[2018-12-19] VITALS: BP 134/69
[2018-12-19] MEDS: Piperacillin/Tazobactam 3.375 GM in NS 110 ML IVPB SCH ×3 (01:05→16:30)
[2018-12-19] MEDS: 1/2NS w/KCl 20mEq 1000ml 1,000 ML IV SCH (01:16)
[2018-12-19 04:00] VITALS: BP 122/80
--- NOTE | 2018-12-19 07:03 | NUR ---
HAND-OFF: Report given to REA Baird. Endorsed plan of care.
--- NOTE | 2018-12-19 07:10 | NUR ---
NURSE NOTES: I received the patient resting in bed. Patient responds to name. IV sites patent. Bed in the lowest position and call light within reach. Patient does not display any signs of distress or SOB. I will continue to monitor the patient and implement care.
[2018-12-19 08:00] VITALS: BP 129/77
[2018-12-19 08:12] LABS: BASOPHILS % (AUTO) 1.4 % (0.0-2.0); EOSINOPHILS % (AUTO) 3.8 % (0.0-3.0); HEMATOCRIT 32.8 % (42.0-52.0); HEMOGLOBIN 10.9 G/DL (14.2-18.0); MEAN CORPUSCULAR VOLUME 93 FL (80-99); MONOCYTES % (AUTO) 9.8 % (1.0-10.0); PLATELET COUNT 122 K/UL (150-450); RED BLOOD COUNT 3.53 M/UL (4.70-6.10); RED CELL DISTRIBUTION WIDTH 12.3 % (11.6-14.8); WHITE BLOOD COUNT 5.5 K/UL (4.8-10.8)
[2018-12-19 08:27] LABS: ALANINE AMINOTRANSFERASE 51 U/L (12-78); ALBUMIN 2.1 G/DL (3.4-5.0); ALBUMIN/GLOBULIN RATIO 0.5 (1.0-2.7); ALKALINE PHOSPHATASE 235 U/L (46-116); ANION GAP 11 mmol/L (5-15); ASPARTATE AMINO TRANSFERASE 29 U/L (15-37); BLOOD UREA NITROGEN 14 mg/dL (7-18); CALCIUM 8.4 MG/DL (8.5-10.1); CARBON DIOXIDE 23 MMOL/L (21-32); CHLORIDE 105 MMOL/L (98-107); CREATININE 0.8 MG/DL (0.55-1.30); POTASSIUM 3.7 MMOL/L (3.5-5.1); SODIUM 139 MMOL/L (136-145)
[2018-12-19 08:28] LABS: BILIRUBIN,DIRECT 1.1 MG/DL (0.0-0.3)
[2018-12-19] MEDS: Heparin 5000 units/ml inj SUBQ SCH ×2 (08:30→21:00)
--- NOTE | 2018-12-19 10:41 | NUR ---
NURSE NOTES: Patient provided oral care and bed bath. Condom cath applied to the patient. Patient repositioned in bed. Bed in the lowest position and call light within reach. Patient's IV patent. Bed alarm on and yellow socks on the patient. Patient does not display any signs of distress or SOB.
[2018-12-19] MEDS: D5 1/2NS w/KCl 30mEq 1000ml 1,000 ML IV SCH (11:09)
[2018-12-19 12:00] VITALS: BP 128/59
--- NOTE | 2018-12-19 12:07 | General Progress Note ---
Assessment/Plan Problem List: (1) Gastrostomy complication ICD Codes: K94.20 - Gastrostomy complication, unspecified SNOMED: 096981425 (2) Alzheimer disease ICD Codes: G30.9 - Alzheimer's disease, unspecified; F02.80 - Dementia in other diseases classified elsewhere without behavioral disturbance SNOMED: 18266665 (3) Chronic atrial fibrillation ICD Codes: I48.2 - Chronic atrial fibrillation SNOMED: 810066850 (4) Alteration consciousness ICD Codes: R40.4 - Transient alteration of awareness SNOMED: 3776271 (5) Cholecystitis ICD Codes: K81.9 - Cholecystitis, unspecified SNOMED: 24590946 (6) Gallstone pancreatitis ICD Codes: K85.10 - Biliary acute pancreatitis without necrosis or infection SNOMED: 67191341 Assessment/Plan npo , hydration, iv atb gi eval in process Subjective ROS Limited/Unobtainable: Yes Allergies: Coded Allergies: No Known Allergies (Unverified , 04/29/14) Objective Last 24 Hour Vital Signs Date Time Temp Pulse Resp B/P (MAP) Pulse Ox O2 Delivery O2 Flow Rate FiO2 12/19/18 09:00 Nasal Cannula 2.0 12/19/18 08:00 98.2 88 21 129/77 (94) 99 12/19/18 07:34 78 12/19/18 04:00 78 12/19/18 04:00 97.4 78 18 122/80 (94) 98 12/19/18 00:00 93 12/19/18 00:00 98.3 93 18 134/69 (90) 100 12/18/18 21:00 Nasal Cannula 2.0 12/18/18 20:00 91 12/18/18 20:00 97.7 91 19 125/82 (96) 98 12/18/18 15:50 98.7 70 20 125/66 (85) 99 12/18/18 15:32 76 Intake and Output 12/18/18 12/19/18 18:59 06:59 Intake Total 547.5 ml Output Total 100 ml Balance 547.5 ml -100 ml Intake IV Total 547.5 ml Output Urine Total 100 ml # Voids 3 3 # Bowel Movements 1 2 Laboratory Tests 12/19/18 07:16: White Blood Count 5.5, Red Blood Count 3.53L, Hemoglobin 10.9L, Hematocrit 32.8L , Mean Corpuscular Volume 93, Mean Corpuscular Hemoglobin 31.0, Mean Corpuscular Hemoglobin Concent 33.4, Red Cell Distribution Width 12.3, Platelet Count 122L, Mean Platelet Volume 9.3, Neutrophils (%) (Auto) 52.0, Lymphocytes ( %) (Auto) 33.0, Monocytes (%) (Auto) 9.8, Eosinophils (%) (Auto) 3.8H, Basophils (%) (Auto) 1.4, Sodium Level 139, Potassium Level 3.7, Chloride Level 105, Carbon Dioxide Level 23, Anion Gap 11, Blood Urea Nitrogen 14, Creatinine 0.8, Estimat Glomerular Filtration Rate , Glucose Level 67L, Calcium Level 8.4L , Total Bilirubin 2.0H, Direct Bilirubin 1.1H, Aspartate Amino Transf (AST/SGOT ) 29, Alanine Aminotransferase (ALT/SGPT) 51, Alkaline Phosphatase 235H, Total Protein 6.7, Albumin 2.1L, Globulin 4.6, Albumin/Globulin Ratio 0.5L, Lipase 180 Height (Feet): 5 Height (Inches): 6.00 Weight (Pounds): 152 General Appearance: no apparent distress, lethargic, confused EENT: other - edent Neck: normal alignment Cardiovascular: regularly irregular Respiratory/Chest: lungs clear Abdomen: non tender, soft Edema: no edema noted Arm (L), no edema noted Arm (R), no edema noted Leg (L), no edema noted Leg (R), no edema noted Pedal (L), no edema noted Pedal (R), no edema noted Generalized Neurologic: disoriented Cresencio Acosta MD Dec 19, 2018 12:07
--- NOTE | 2018-12-19 12:15 | NUR ---
RD ASSESSMENT & RECOMMENDATIONS SEE CARE ACTIVITY FOR COMPLETE ASSESSMENT DAILY ESTIMATED NEEDS: Needs based on Pancreatitis 69kg 25-30 kcals/kg 7075-3478 total kcals 1-1.5 g protein/kg 69-104 g total protein 20-25 mL/kg 1458-9427 total fluid mLs NUTRITION DIAGNOSIS: Swallowing difficulty r/t dysphagia as evidenced by pt is GT dep ENTERAL NUTRITION RECOMMENDATIONS: Osmolite 1.5 @50ml/hr x24 hrs to provide 1200ml, 1800 kcal, 75g pro, 914ml free H2O - As medically able, rec to start Osmolite 1.5 @20ml/hr for 6 hrs. - Advance as tolerated 10ml/hr q4-6 hrs to goal - Flush per MD/ HOB over 30 degrees ADDITIONAL RECOMMENDATIONS: 1) Calibrated bed scale wts 2) GT feeds as able, TF recs as above 3) Monitor lytes/ BG w/ cont NPO status Replete as needed 4) Monitor NPO status, ability to initiate feeds.
--- NOTE | 2018-12-19 12:18 | General Progress Note ---
Assessment/Plan Assessment/Plan (1) Gallstone pancreatitis ICD Codes: K85.10 - Biliary acute pancreatitis without necrosis or infection SNOMED: 63848148 (2) Constipation ICD Codes: K59.00 - Constipation, unspecified SNOMED: 01508819 (3) Dysphagia ICD Codes: R13.10 - Dysphagia SNOMED: 07060383 (4) Dementia ICD Codes: F03.90 - Dementia SNOMED: 96751433 (5) Jaundice ICD Codes: R17 - Unspecified jaundice SNOMED: 01374236 (6) Dehydration ICD Codes: E86.0 - Dehydration SNOMED: 57226989 Status: unchanged Assessment/Plan MRCP noted, common bile duct dilation of 7 mm with no stones noted. Noted surgical recommendations for conservative management Will begin TF, slowly PPI PRN transfusion Follow labs Subjective Allergies: Coded Allergies: No Known Allergies (Unverified , 04/29/14) Subjective minimally interactive no events overnight Objective Last 24 Hour Vital Signs Date Time Temp Pulse Resp B/P (MAP) Pulse Ox O2 Delivery O2 Flow Rate FiO2 12/19/18 12:00 97.9 83 21 128/59 (82) 97 12/19/18 09:00 Nasal Cannula 2.0 12/19/18 08:00 98.2 88 21 129/77 (94) 99 12/19/18 07:34 78 12/19/18 04:00 78 12/19/18 04:00 97.4 78 18 122/80 (94) 98 12/19/18 00:00 93 12/19/18 00:00 98.3 93 18 134/69 (90) 100 12/18/18 21:00 Nasal Cannula 2.0 12/18/18 20:00 91 12/18/18 20:00 97.7 91 19 125/82 (96) 98 12/18/18 15:50 98.7 70 20 125/66 (85) 99 12/18/18 15:32 76 Intake and Output 12/18/18 12/19/18 19:00 07:00 Intake Total 547.5 ml Output Total 100 ml Balance 547.5 ml -100 ml Intake IV Total 547.5 ml Output Urine Total 100 ml # Voids 3 3 # Bowel Movements 1 2 Laboratory Tests 12/19/18 07:16: White Blood Count 5.5, Red Blood Count 3.53L, Hemoglobin 10.9L, Hematocrit 32.8L , Mean Corpuscular Volume 93, Mean Corpuscular Hemoglobin 31.0, Mean Corpuscular Hemoglobin Concent 33.4, Red Cell Distribution Width 12.3, Platelet Count 122L, Mean Platelet Volume 9.3, Neutrophils (%) (Auto) 52.0, Lymphocytes ( %) (Auto) 33.0, Monocytes (%) (Auto) 9.8, Eosinophils (%) (Auto) 3.8H, Basophils (%) (Auto) 1.4, Sodium Level 139, Potassium Level 3.7, Chloride Level 105, Carbon Dioxide Level 23, Anion Gap 11, Blood Urea Nitrogen 14, Creatinine 0.8, Estimat Glomerular Filtration Rate , Glucose Level 67L, Calcium Level 8.4L , Total Bilirubin 2.0H, Direct Bilirubin 1.1H, Aspartate Amino Transf (AST/SGOT ) 29, Alanine Aminotransferase (ALT/SGPT) 51, Alkaline Phosphatase 235H, Total Protein 6.7, Albumin 2.1L, Globulin 4.6, Albumin/Globulin Ratio 0.5L, Lipase 180 Height (Feet): 5 Height (Inches): 6.00 Weight (Pounds): 152 Objective Elderly man NAD minimally interactive CTA RR Abd soft, (+) GT no edema Michael Jaimes MD Dec 19, 2018 12:18
--- NOTE | 2018-12-19 13:27 | NUR ---
NURSE NOTES: Patient's g-tube flushing well. Vital AF 1.2 started at 10ml/hr. Patient resting in bed and does not display any signs of distress.
[2018-12-19 16:00] VITALS: BP 115/74
--- NOTE | 2018-12-19 16:18 | NUR ---
CASE MANAGEMENT: REVIEW SI: GALLSTONE PANCREATITIS . CHOLEDOCHOLITHIASIS w/ACUTE CHOLECYSTITIS T 97.3 HR 91 RR 22 BP 128/59 SAT 92% NC/2L GLUCOSE 67 T-BILI 2.0 D-BILI 1.1 IS: D5 1/2 NS w/KCl IVF ZOSYN IV Q8HR GT FEEDING TELEMETRY UNIT STATUS DCP: [facility]IENT IS FROM [facility]
--- NOTE | 2018-12-19 18:11 | Surgery Progress Note ---
Surgery Progress Note Subjective Symptoms: improved Additional Comments no acute events. labs improved. jaundice improved. otherwise okay Objective Last 24 Hour Vital Signs Date Time Temp Pulse Resp B/P (MAP) Pulse Ox O2 Delivery O2 Flow Rate FiO2 12/19/18 16:00 97.3 91 22 115/74 (88) 92 12/19/18 15:38 77 12/19/18 12:00 97.9 83 21 128/59 (82) 97 12/19/18 11:34 76 12/19/18 09:00 Nasal Cannula 2.0 12/19/18 08:00 98.2 88 21 129/77 (94) 99 12/19/18 07:34 78 12/19/18 04:00 78 12/19/18 04:00 97.4 78 18 122/80 (94) 98 12/19/18 00:00 93 12/19/18 00:00 98.3 93 18 134/69 (90) 100 12/18/18 21:00 Nasal Cannula 2.0 12/18/18 20:00 91 12/18/18 20:00 97.7 91 19 125/82 (96) 98 I&O Intake and Output 12/18/18 12/19/18 18:59 06:59 Intake Total 547.5 ml Output Total 100 ml Balance 547.5 ml -100 ml IV Total 547.5 ml Output Urine Total 100 ml # Voids 3 3 # Bowel Movements 1 2 Drains: other Cardiovascular: RSR Respiratory: clear Abdomen: soft, present bowel sounds, non-distended Extremities: no tenderness, no cyanosis Laboratory Tests Test 12/19/18 07:16 White Blood Count 5.5 K/UL (4.8-10.8) Red Blood Count 3.53 M/UL (4.70-6.10) L Hemoglobin 10.9 G/DL (14.2-18.0) L Hematocrit 32.8 % (42.0-52.0) L Mean Corpuscular Volume 93 FL (80-99) Mean Corpuscular Hemoglobin 31.0 PG (27.0-31.0) Mean Corpuscular Hemoglobin Concent 33.4 G/DL (32.0-36.0) Red Cell Distribution Width 12.3 % (11.6-14.8) Platelet Count 122 K/UL (150-450) L Mean Platelet Volume 9.3 FL (6.5-10.1) Neutrophils (%) (Auto) 52.0 % (45.0-75.0) Lymphocytes (%) (Auto) 33.0 % (20.0-45.0) Monocytes (%) (Auto) 9.8 % (1.0-10.0) Eosinophils (%) (Auto) 3.8 % (0.0-3.0) H Basophils (%) (Auto) 1.4 % (0.0-2.0) Sodium Level 139 MMOL/L (136-145) Potassium Level 3.7 MMOL/L (3.5-5.1) Chloride Level 105 MMOL/L (98-107) Carbon Dioxide Level 23 MMOL/L (21-32) Anion Gap 11 mmol/L (5-15) Blood Urea Nitrogen 14 mg/dL (7-18) Creatinine 0.8 MG/DL (0.55-1.30) Estimat Glomerular Filtration Rate mL/min (>60) Glucose Level 67 MG/DL (74-106) L Calcium Level 8.4 MG/DL (8.5-10.1) L Total Bilirubin 2.0 MG/DL (0.2-1.0) H Direct Bilirubin 1.1 MG/DL (0.0-0.3) H Aspartate Amino Transf (AST/SGOT) 29 U/L (15-37) Alanine Aminotransferase (ALT/SGPT) 51 U/L (12-78) Alkaline Phosphatase 235 U/L (46-116) H Total Protein 6.7 G/DL (6.4-8.2) Albumin 2.1 G/DL (3.4-5.0) L Globulin 4.6 g/dL Albumin/Globulin Ratio 0.5 (1.0-2.7) L Lipase 180 U/L (73-393) Plan Problems: (1) Cholecystitis (2) Choledocholithiasis (3) Choledocholithiasis with acute cholecystitis (4) Gallstone pancreatitis Assessment & Plan: 88-year-old male with cholecystitis, choledocholithiasis, gallstone pancreatitis leukocytosis, febrile, tachycardic, septic, jaundice. IV fluids IV Abx ERCP cancelled as MRCP without CBD obstruction trend labs leukocytosis resolved. labs improving. MRI noted. given age, history, clinical improvement, likely hold on cholecystectomy. cont medical management labs improving exam improved diet as tolerated will follow with recs thank you Anand Mcfadden Dec 19, 2018 18:11
--- NOTE | 2018-12-19 19:38 | NUR ---
HAND-OFF: Report given to Tanika Trent RN.
--- NOTE | 2018-12-19 19:39 | NUR ---
NURSE NOTES: Received pt from REA Baird. Pt awake and resting in bed. IV site intact and patent. Bed in lowest position and call light within reach. Will continue with plan of care.
[2018-12-19 20:00] VITALS: BP 119/68
[2018-12-20] VITALS: BP 130/68
[2018-12-20] MEDS: Piperacillin/Tazobactam 3.375 GM in NS 110 ML IVPB SCH ×3 (01:11→17:27)
[2018-12-20] MEDS: D5 1/2NS w/KCl 30mEq 1000ml 1,000 ML IV SCH ×2 (02:24→06:05)
[2018-12-20 04:00] VITALS: BP 122/69
--- NOTE | 2018-12-20 07:25 | NUR ---
HAND-OFF: Report given to REA Bear. Endorsed plan of care.
[2018-12-20 07:54] LABS: BASOPHILS % (AUTO) 0.8 % (0.0-2.0); EOSINOPHILS % (AUTO) 2.4 % (0.0-3.0); HEMATOCRIT 34.3 % (42.0-52.0); HEMOGLOBIN 11.8 G/DL (14.2-18.0); LYMPHOCYTES % (AUTO) 19.6 % (20.0-45.0); MEAN CORPUSCULAR VOLUME 93 FL (80-99); MONOCYTES % (AUTO) 5.7 % (1.0-10.0); NEUTROPHILS % (AUTO) 71.4 % (45.0-75.0); PLATELET COUNT 160 K/UL (150-450); RED BLOOD COUNT 3.69 M/UL (4.70-6.10); RED CELL DISTRIBUTION WIDTH 12.2 % (11.6-14.8); WHITE BLOOD COUNT 8.7 K/UL (4.8-10.8)
[2018-12-20 08:00] VITALS: BP 101/69
--- NOTE | 2018-12-20 08:35 | NUR ---
NURSE NOTES: Received report from Alex LUCIA. Pt resting in bed. Pt on auto tester doesn't show any signs of distress. Bed locked and in lowest position. Call light is right next to him. Will continue plan of care. redness on cocyx area applied optiform.
[2018-12-20 08:37] LABS: ALANINE AMINOTRANSFERASE 50 U/L (12-78); ALBUMIN 2.2 G/DL (3.4-5.0); ALBUMIN/GLOBULIN RATIO 0.4 (1.0-2.7); ALKALINE PHOSPHATASE 238 U/L (46-116); ANION GAP 7 mmol/L (5-15); ASPARTATE AMINO TRANSFERASE 53 U/L (15-37); BILIRUBIN,TOTAL 1.6 MG/DL (0.2-1.0); BLOOD UREA NITROGEN 10 mg/dL (7-18); CALCIUM 8.8 MG/DL (8.5-10.1); CARBON DIOXIDE 27 MMOL/L (21-32); CHLORIDE 106 MMOL/L (98-107); CREATININE 0.8 MG/DL (0.55-1.30); POTASSIUM 4.9 MMOL/L (3.5-5.1); SODIUM 140 MMOL/L (136-145)
[2018-12-20 08:38] LABS: BILIRUBIN,DIRECT 0.5 MG/DL (0.0-0.3)
[2018-12-20] MEDS: Heparin 5000 units/ml inj SUBQ SCH ×2 (09:20→21:45)
--- NOTE | 2018-12-20 11:22 | GI Progress Note ---
Assessment/Plan Problems: (1) Gallstone pancreatitis ICD Codes: K85.10 - Biliary acute pancreatitis without necrosis or infection SNOMED: 25642606 (2) Constipation ICD Codes: K59.00 - Constipation, unspecified SNOMED: 53044174 (3) Dysphagia ICD Codes: R13.10 - Dysphagia SNOMED: 17046481 (4) Dementia ICD Codes: F03.90 - Dementia SNOMED: 14437103 (5) Jaundice ICD Codes: R17 - Unspecified jaundice SNOMED: 20955198 (6) Dehydration ICD Codes: E86.0 - Dehydration SNOMED: 50242324 Status: unchanged Status Narrative Discussed with Dr. Stewart. Assessment/Plan MRCP noted, common bile duct dilation of 7 mm with no stones noted. Noted surgical recommendations for conservative management Will begin TF, slowly PPI PRN transfusion Follow labs The patient was seen and examined at bedside and all new and available data was reviewed in the patients chart. I agree with the above findings, impression and plan. (Patient seen earlier today. Signature stamp does not reflect patient encounter time.). - Rebel Stewart MD Subjective Subjective Limited Objective Last 24 Hour Vital Signs Date Time Temp Pulse Resp B/P (MAP) Pulse Ox O2 Delivery O2 Flow Rate FiO2 12/20/18 08:00 96.7 84 20 101/69 (80) 98 12/20/18 04:00 83 12/20/18 04:00 98.0 83 18 122/69 (86) 99 12/20/18 00:00 84 12/20/18 00:00 98.0 84 18 130/68 (88) 98 12/19/18 21:00 Nasal Cannula 2.0 12/19/18 20:00 98.4 80 18 119/68 (85) 95 12/19/18 20:00 80 12/19/18 16:00 97.3 91 22 115/74 (88) 92 12/19/18 15:38 77 12/19/18 12:00 97.9 83 21 128/59 (82) 97 12/19/18 11:34 76 Intake and Output 12/19/18 12/20/18 19:00 07:00 Intake Total 865.0 ml Output Total 100 ml Balance 765.0 ml Intake Free Water 90 ml IV Total 705.0 ml Tube Feeding 70 ml Output Urine Total 100 ml # Voids 3 2 # Bowel Movements 3 1 Laboratory Tests Test 12/20/18 06:45 White Blood Count 8.7 K/UL (4.8-10.8) # Red Blood Count 3.69 M/UL (4.70-6.10) L Hemoglobin 11.8 G/DL (14.2-18.0) L Hematocrit 34.3 % (42.0-52.0) L Mean Corpuscular Volume 93 FL (80-99) Mean Corpuscular Hemoglobin 32.0 PG (27.0-31.0) H Mean Corpuscular Hemoglobin Concent 34.5 G/DL (32.0-36.0) Red Cell Distribution Width 12.2 % (11.6-14.8) Platelet Count 160 K/UL (150-450) Mean Platelet Volume 8.3 FL (6.5-10.1) Neutrophils (%) (Auto) 71.4 % (45.0-75.0) Lymphocytes (%) (Auto) 19.6 % (20.0-45.0) L Monocytes (%) (Auto) 5.7 % (1.0-10.0) Eosinophils (%) (Auto) 2.4 % (0.0-3.0) Basophils (%) (Auto) 0.8 % (0.0-2.0) Sodium Level 140 MMOL/L (136-145) Potassium Level 4.9 MMOL/L (3.5-5.1) Chloride Level 106 MMOL/L (98-107) Carbon Dioxide Level 27 MMOL/L (21-32) Anion Gap 7 mmol/L (5-15) Blood Urea Nitrogen 10 mg/dL (7-18) Creatinine 0.8 MG/DL (0.55-1.30) Estimat Glomerular Filtration Rate mL/min (>60) Glucose Level 110 MG/DL (74-106) H Calcium Level 8.8 MG/DL (8.5-10.1) Total Bilirubin 1.6 MG/DL (0.2-1.0) H Direct Bilirubin 0.5 MG/DL (0.0-0.3) H Aspartate Amino Transf (AST/SGOT) 53 U/L (15-37) H Alanine Aminotransferase (ALT/SGPT) 50 U/L (12-78) Alkaline Phosphatase 238 U/L (46-116) H Total Protein 7.2 G/DL (6.4-8.2) Albumin 2.2 G/DL (3.4-5.0) L Globulin 5.0 g/dL Albumin/Globulin Ratio 0.4 (1.0-2.7) L Height (Feet): 5 Height (Inches): 6.00 Weight (Pounds): 152 General Appearance: no apparent distress Cardiovascular: normal rate Respiratory/Chest: normal breath sounds, no respiratory distress Abdominal Exam: normal bowel sounds, non tender, soft Extremities: non-tender Patrick Garay NP Dec 20, 2018 11:22
[2018-12-20 12:00] VITALS: BP 96/55
--- NOTE | 2018-12-20 12:49 | NUR ---
CASE MANAGEMENT:REVIEW 12/20/18 SI: CHOLEDOCHOLITHIASIS W/ACUTE CHOLECYSTITIS MRCP (-) CBD OBSTRUCTION 96.7 84 20 101/69 98% ON 2L/NC H/H-11.8/34/3 TBILI+1.6 DBILI+0.5 IS: IV ZOSYN Q8HRS IVF@65/HR HEPARIN SQ Q12 : TELEMETRY STATUS DCP: [facility]
--- NOTE | 2018-12-20 14:22 | Surgery Progress Note ---
Surgery Progress Note Subjective Additional Comments labs improved. exam stable. jaundice resolved Objective Last 24 Hour Vital Signs Date Time Temp Pulse Resp B/P (MAP) Pulse Ox O2 Delivery O2 Flow Rate FiO2 12/20/18 08:00 96.7 84 20 101/69 (80) 98 12/20/18 04:00 83 12/20/18 04:00 98.0 83 18 122/69 (86) 99 12/20/18 00:00 84 12/20/18 00:00 98.0 84 18 130/68 (88) 98 12/19/18 21:00 Nasal Cannula 2.0 12/19/18 20:00 98.4 80 18 119/68 (85) 95 12/19/18 20:00 80 12/19/18 16:00 97.3 91 22 115/74 (88) 92 12/19/18 15:38 77 I&O Intake and Output 12/19/18 12/20/18 19:00 07:00 Intake Total 865.0 ml Output Total 100 ml Balance 765.0 ml Intake Free Water 90 ml IV Total 705.0 ml Tube Feeding 70 ml Output Urine Total 100 ml # Voids 3 2 # Bowel Movements 3 1 Drains: other Cardiovascular: RSR Respiratory: clear Abdomen: soft, present bowel sounds, non-distended Extremities: no tenderness, no cyanosis Laboratory Tests Test 12/20/18 06:45 White Blood Count 8.7 K/UL (4.8-10.8) # Red Blood Count 3.69 M/UL (4.70-6.10) L Hemoglobin 11.8 G/DL (14.2-18.0) L Hematocrit 34.3 % (42.0-52.0) L Mean Corpuscular Volume 93 FL (80-99) Mean Corpuscular Hemoglobin 32.0 PG (27.0-31.0) H Mean Corpuscular Hemoglobin Concent 34.5 G/DL (32.0-36.0) Red Cell Distribution Width 12.2 % (11.6-14.8) Platelet Count 160 K/UL (150-450) Mean Platelet Volume 8.3 FL (6.5-10.1) Neutrophils (%) (Auto) 71.4 % (45.0-75.0) Lymphocytes (%) (Auto) 19.6 % (20.0-45.0) L Monocytes (%) (Auto) 5.7 % (1.0-10.0) Eosinophils (%) (Auto) 2.4 % (0.0-3.0) Basophils (%) (Auto) 0.8 % (0.0-2.0) Sodium Level 140 MMOL/L (136-145) Potassium Level 4.9 MMOL/L (3.5-5.1) Chloride Level 106 MMOL/L (98-107) Carbon Dioxide Level 27 MMOL/L (21-32) Anion Gap 7 mmol/L (5-15) Blood Urea Nitrogen 10 mg/dL (7-18) Creatinine 0.8 MG/DL (0.55-1.30) Estimat Glomerular Filtration Rate mL/min (>60) Glucose Level 110 MG/DL (74-106) H Calcium Level 8.8 MG/DL (8.5-10.1) Total Bilirubin 1.6 MG/DL (0.2-1.0) H Direct Bilirubin 0.5 MG/DL (0.0-0.3) H Aspartate Amino Transf (AST/SGOT) 53 U/L (15-37) H Alanine Aminotransferase (ALT/SGPT) 50 U/L (12-78) Alkaline Phosphatase 238 U/L (46-116) H Total Protein 7.2 G/DL (6.4-8.2) Albumin 2.2 G/DL (3.4-5.0) L Globulin 5.0 g/dL Albumin/Globulin Ratio 0.4 (1.0-2.7) L Plan Problems: (1) Cholecystitis (2) Choledocholithiasis (3) Choledocholithiasis with acute cholecystitis (4) Gallstone pancreatitis Assessment & Plan: 88-year-old male with cholecystitis, choledocholithiasis, gallstone pancreatitis leukocytosis, febrile, tachycardic, septic, jaundice. IV fluids IV Abx ERCP cancelled as MRCP without CBD obstruction trend labs leukocytosis resolved. labs improving. MRI noted. given age, history, clinical improvement, likely hold on cholecystectomy. cont medical management labs improving exam improved diet as tolerated will follow with recs d/c planning thank you Anand Mcfadden Dec 20, 2018 14:22
--- NOTE | 2018-12-20 15:01 | NUR ---
*-* INSURANCE *-* UPDATED CLINICALS AND REVIEWS HAVE BEEN FAXED TO: [facility] FAX ALL CLINICALS TO [phone]
[2018-12-20 16:00] VITALS: BP 102/61
--- NOTE | 2018-12-20 16:43 | General Progress Note ---
Assessment/Plan Assessment/Plan Labs reviewed. Acute Gallstone pancreatitis. resolving. SNF tomorrow. Subjective Allergies: Coded Allergies: No Known Allergies (Unverified , 04/29/14) Subjective Confused. Tolerating TF 25 cc/hr. Objective Last 24 Hour Vital Signs Date Time Temp Pulse Resp B/P (MAP) Pulse Ox O2 Delivery O2 Flow Rate FiO2 12/20/18 08:00 96.7 84 20 101/69 (80) 98 12/20/18 04:00 83 12/20/18 04:00 98.0 83 18 122/69 (86) 99 12/20/18 00:00 84 12/20/18 00:00 98.0 84 18 130/68 (88) 98 12/19/18 21:00 Nasal Cannula 2.0 12/19/18 20:00 98.4 80 18 119/68 (85) 95 12/19/18 20:00 80 Intake and Output 12/19/18 12/20/18 18:59 06:59 Intake Total 865.0 ml Output Total 100 ml Balance 765.0 ml Intake Free Water 90 ml IV Total 705.0 ml Tube Feeding 70 ml Output Urine Total 100 ml # Voids 3 2 # Bowel Movements 3 1 Laboratory Tests 12/20/18 06:45: White Blood Count 8.7#, Red Blood Count 3.69L, Hemoglobin 11.8L, Hematocrit 34.3L, Mean Corpuscular Volume 93, Mean Corpuscular Hemoglobin 32.0H, Mean Corpuscular Hemoglobin Concent 34.5, Red Cell Distribution Width 12.2, Platelet Count 160, Mean Platelet Volume 8.3, Neutrophils (%) (Auto) 71.4, Lymphocytes (% ) (Auto) 19.6L, Monocytes (%) (Auto) 5.7, Eosinophils (%) (Auto) 2.4, Basophils (%) (Auto) 0.8, Sodium Level 140, Potassium Level 4.9, Chloride Level 106, Carbon Dioxide Level 27, Anion Gap 7, Blood Urea Nitrogen 10, Creatinine 0.8, Estimat Glomerular Filtration Rate , Glucose Level 110H, Calcium Level 8.8, Total Bilirubin 1.6H, Direct Bilirubin 0.5H, Aspartate Amino Transf (AST/SGOT) 53H, Alanine Aminotransferase (ALT/SGPT) 50, Alkaline Phosphatase 238H, Total Protein 7.2, Albumin 2.2L, Globulin 5.0, Albumin/Globulin Ratio 0.4L Height (Feet): 5 Height (Inches): 6.00 Weight (Pounds): 152 Objective CV RR Lungs CTA Abs Soft, RUQ tenderness. BS + E No CCE Luis Donovan MD Dec 20, 2018 16:43
--- NOTE | 2018-12-20 19:30 | NUR ---
NURSE NOTES: Received report from Randall Bear RN. Endorsed that pt is non verbal. Pt is sleeping, easily arousable by voice, w/o respiratory distress in 2L NC. GT feeding is Vital AF 1.2 and running at 25/hr. Feeding is running and patent. HOB kept 30 degree. Bed is in lowest position with 2 side rails up, bed alarm on, and breaks are engaged. Will follow plan of care.
[2018-12-20 20:00] VITALS: BP 114/68
--- NOTE | 2018-12-20 21:32 | NUR ---
HAND-OFF: Report given to Nereida Long.
--- NOTE | 2018-12-20 22:57 | NUR ---
NURSE NOTES: Maciej Anthony, YASMEENA, brother called and update was given around 2129. Pt had BM, Soft form, small amount. Pt was turned,cleaned, dried, and repositioned. Currently, pt is resting in 2L NC, no distress. Will continue to monitor.
[2018-12-21] VITALS: BP 109/53
[2018-12-21] MEDS: Piperacillin/Tazobactam 3.375 GM in NS 110 ML IVPB SCH ×2 (01:16→09:37)
[2018-12-21 04:00] VITALS: BP 125/78
[2018-12-21 06:48] LABS: BASOPHILS % (AUTO) 0.9 % (0.0-2.0); HEMATOCRIT 33.8 % (42.0-52.0); HEMOGLOBIN 11.4 G/DL (14.2-18.0); LYMPHOCYTES % (AUTO) 39.3 % (20.0-45.0); MEAN CORPUSCULAR VOLUME 94 FL (80-99); MONOCYTES % (AUTO) 9.8 % (1.0-10.0); PLATELET COUNT 127 K/UL (150-450); RED BLOOD COUNT 3.61 M/UL (4.70-6.10); RED CELL DISTRIBUTION WIDTH 12.2 % (11.6-14.8); WHITE BLOOD COUNT 5.6 K/UL (4.8-10.8)
--- NOTE | 2018-12-21 07:10 | NUR ---
HAND-OFF: Report given to Kieran Marcos RN.
[2018-12-21 07:17] LABS: ALANINE AMINOTRANSFERASE 53 U/L (12-78); ALBUMIN 2.3 G/DL (3.4-5.0); ALBUMIN/GLOBULIN RATIO 0.5 (1.0-2.7); ALKALINE PHOSPHATASE 220 U/L (46-116); ANION GAP 8 mmol/L (5-15); ASPARTATE AMINO TRANSFERASE 32 U/L (15-37); BILIRUBIN,DIRECT 0.7 MG/DL (0.0-0.3); BILIRUBIN,TOTAL 1.1 MG/DL (0.2-1.0); BLOOD UREA NITROGEN 10 mg/dL (7-18); CALCIUM 8.9 MG/DL (8.5-10.1); CARBON DIOXIDE 27 MMOL/L (21-32); CHLORIDE 108 MMOL/L (98-107); CREATININE 0.9 MG/DL (0.55-1.30); POTASSIUM 3.5 MMOL/L (3.5-5.1); SODIUM 143 MMOL/L (136-145)
--- NOTE | 2018-12-21 07:30 | NUR ---
NURSE NOTES: Received patient. In bed, asleep. Oriented x 1. 25ml residual, on tube feed 25ml/hr, flushed with 60ml of H2O. Bed in low position, call light within reach. HOB >30 degrees. IV on right forearm, 22Gauge, patent with D5 1/2 NS with 30MEQ of KCL infusing at 65ml/hr. On 2L NC, no s/s of respiratory distress.
[2018-12-21 08:00] VITALS: BP 125/74
[2018-12-21] MEDS: D5 1/2NS w/KCl 30mEq 1000ml 1,000 ML IV SCH (09:36)
[2018-12-21] MEDS: Heparin 5000 units/ml inj SUBQ SCH (09:40)
--- NOTE | 2018-12-21 10:21 | GI Progress Note ---
Assessment/Plan Problems: (1) Gallstone pancreatitis ICD Codes: K85.10 - Biliary acute pancreatitis without necrosis or infection SNOMED: 58183975 (2) Constipation ICD Codes: K59.00 - Constipation, unspecified SNOMED: 19062635 (3) Dysphagia ICD Codes: R13.10 - Dysphagia SNOMED: 40206891 (4) Dementia ICD Codes: F03.90 - Dementia SNOMED: 44423534 (5) Jaundice ICD Codes: R17 - Unspecified jaundice SNOMED: 88314760 (6) Dehydration ICD Codes: E86.0 - Dehydration SNOMED: 41614535 Status: stable Status Narrative Discussed with Dr. Stewart Assessment/Plan MRCP noted, common bile duct dilation of 7 mm with no stones noted. Noted surgical recommendations for conservative management GTFs to goal PPI PRN transfusion Follow labs DC planning The patient was seen and examined at bedside and all new and available data was reviewed in the patients chart. I agree with the above findings, impression and plan. (Patient seen earlier today. Signature stamp does not reflect patient encounter time.). - Rebel Stewart MD Subjective Subjective Limited Objective Last 24 Hour Vital Signs Date Time Temp Pulse Resp B/P (MAP) Pulse Ox O2 Delivery O2 Flow Rate FiO2 12/21/18 09:19 Nasal Cannula 2.0 12/21/18 08:00 97.9 86 20 125/74 (91) 97 12/21/18 04:00 97.0 89 20 125/78 (94) 98 12/21/18 03:28 75 12/21/18 00:00 97.7 84 20 109/53 (71) 98 12/20/18 23:37 90 12/20/18 21:00 Nasal Cannula 2.0 12/20/18 20:00 89 12/20/18 20:00 96.0 96 20 114/68 (83) 98 12/20/18 16:00 97.5 87 20 102/61 (75) 97 12/20/18 16:00 74 12/20/18 12:00 86 12/20/18 12:00 96.9 83 20 96/55 (69) 99 Intake and Output 12/20/18 12/21/18 19:00 07:00 Intake Total 65 ml 630.0 ml Output Total 600 ml Balance -535 ml 630.0 ml IV Total 65 ml 630.0 ml Output Urine Total 600 ml # Voids 2 # Bowel Movements 3 1 Laboratory Tests Test 12/21/18 05:50 White Blood Count 5.6 K/UL (4.8-10.8) Red Blood Count 3.61 M/UL (4.70-6.10) L Hemoglobin 11.4 G/DL (14.2-18.0) L Hematocrit 33.8 % (42.0-52.0) L Mean Corpuscular Volume 94 FL (80-99) Mean Corpuscular Hemoglobin 31.7 PG (27.0-31.0) H Mean Corpuscular Hemoglobin Concent 33.8 G/DL (32.0-36.0) Red Cell Distribution Width 12.2 % (11.6-14.8) Platelet Count 127 K/UL (150-450) L Mean Platelet Volume 11.4 FL (6.5-10.1) H Neutrophils (%) (Auto) 45.0 % (45.0-75.0) Lymphocytes (%) (Auto) 39.3 % (20.0-45.0) Monocytes (%) (Auto) 9.8 % (1.0-10.0) Eosinophils (%) (Auto) 5.0 % (0.0-3.0) H Basophils (%) (Auto) 0.9 % (0.0-2.0) Sodium Level 143 MMOL/L (136-145) Potassium Level 3.5 MMOL/L (3.5-5.1) Chloride Level 108 MMOL/L (98-107) H Carbon Dioxide Level 27 MMOL/L (21-32) Anion Gap 8 mmol/L (5-15) Blood Urea Nitrogen 10 mg/dL (7-18) Creatinine 0.9 MG/DL (0.55-1.30) Estimat Glomerular Filtration Rate mL/min (>60) Glucose Level 101 MG/DL (74-106) Calcium Level 8.9 MG/DL (8.5-10.1) Total Bilirubin 1.1 MG/DL (0.2-1.0) H Direct Bilirubin 0.7 MG/DL (0.0-0.3) H Aspartate Amino Transf (AST/SGOT) 32 U/L (15-37) Alanine Aminotransferase (ALT/SGPT) 53 U/L (12-78) Alkaline Phosphatase 220 U/L (46-116) H Total Protein 7.3 G/DL (6.4-8.2) Albumin 2.3 G/DL (3.4-5.0) L Globulin 5.0 g/dL Albumin/Globulin Ratio 0.5 (1.0-2.7) L Height (Feet): 5 Height (Inches): 6.00 Weight (Pounds): 152 General Appearance: no apparent distress Cardiovascular: normal rate Respiratory/Chest: normal breath sounds, no respiratory distress Abdominal Exam: normal bowel sounds, non tender, soft, GT site - Clean dry and intact Extremities: non-tender Patrick Garay NP Dec 21, 2018 10:20
[2018-12-21 12:00] VITALS: BP 97/57
--- NOTE | 2018-12-21 12:02 | NUR ---
*-* INSURANCE *-* UPDATED CLINICALS HAVE BEEN FAXED TO: [facility] FAX ALL CLINICALS TO [phone]
--- NOTE | 2018-12-21 12:59 | NUR ---
CASE MANAGEMENT:REVIEW 12/21/18 SI: CHOLEDOCHOLITHIASIS W/ACUTE CHOLECYSTITIS 98.1 80 20 97/57 96% ON 2L/NC H/H-11.4/33.8 IS: IV ZOSYN Q8HRS IVF@65/HR HEPARIN SQ Q12 GTUBE FEEDS : TELEMETRY STATUS DCP: [facility]
--- NOTE | 2018-12-21 13:17 | General Progress Note ---
Assessment/Plan Assessment/Plan Labs reviewed. Acute Gallstone pancreatitis. resolving. SNF. Subjective Allergies: Coded Allergies: No Known Allergies (Unverified , 04/29/14) Subjective Confused. Tolerating TF 25 cc/hr. Objective Last 24 Hour Vital Signs Date Time Temp Pulse Resp B/P (MAP) Pulse Ox O2 Delivery O2 Flow Rate FiO2 12/21/18 12:00 76 12/21/18 12:00 98.1 80 20 97/57 (70) 96 12/21/18 09:19 Nasal Cannula 2.0 12/21/18 08:00 97.9 86 20 125/74 (91) 97 12/21/18 08:00 84 12/21/18 04:00 97.0 89 20 125/78 (94) 98 12/21/18 03:28 75 12/21/18 00:00 97.7 84 20 109/53 (71) 98 12/20/18 23:37 90 12/20/18 21:00 Nasal Cannula 2.0 12/20/18 20:00 89 12/20/18 20:00 96.0 96 20 114/68 (83) 98 12/20/18 16:00 97.5 87 20 102/61 (75) 97 12/20/18 16:00 74 Intake and Output 12/20/18 12/21/18 19:00 07:00 Intake Total 65 ml 695.0 ml Output Total 600 ml Balance -535 ml 695.0 ml IV Total 65 ml 695.0 ml Output Urine Total 600 ml # Voids 2 # Bowel Movements 3 1 Laboratory Tests 12/21/18 05:50: White Blood Count 5.6, Red Blood Count 3.61L, Hemoglobin 11.4L, Hematocrit 33.8L , Mean Corpuscular Volume 94, Mean Corpuscular Hemoglobin 31.7H, Mean Corpuscular Hemoglobin Concent 33.8, Red Cell Distribution Width 12.2, Platelet Count 127L, Mean Platelet Volume 11.4H, Neutrophils (%) (Auto) 45.0, Lymphocytes (%) (Auto) 39.3, Monocytes (%) (Auto) 9.8, Eosinophils (%) (Auto) 5.0H, Basophils (%) (Auto) 0.9, Sodium Level 143, Potassium Level 3.5, Chloride Level 108H, Carbon Dioxide Level 27, Anion Gap 8, Blood Urea Nitrogen 10, Creatinine 0.9, Estimat Glomerular Filtration Rate , Glucose Level 101, Calcium Level 8.9, Total Bilirubin 1.1H, Direct Bilirubin 0.7H, Aspartate Amino Transf ( AST/SGOT) 32, Alanine Aminotransferase (ALT/SGPT) 53, Alkaline Phosphatase 220H , Total Protein 7.3, Albumin 2.3L, Globulin 5.0, Albumin/Globulin Ratio 0.5L Height (Feet): 5 Height (Inches): 6.00 Weight (Pounds): 152 Objective CV RR Lungs CTA Abs Soft, RUQ tenderness. BS + E No CCE Luis Donovan MD Dec 21, 2018 13:17
--- NOTE | 2018-12-21 13:23 | NUR ---
DISCHARGE PLAN DISCHARGE ORDER NOTED FAXED CLINICALS TO [facility] [address] T: [phone] AWAIT ACCEPTANCE AND ASSIGNED ROOM NUMBER
--- NOTE | 2018-12-21 13:52 | NUR ---
DISCHARGE PLANNED PATIENT WILL DISCHARGE BACK TO [facility] ROOM [facility] HALFWAY T: [phone] FOR NURSE TO NURSE REPORT [facility] HAS BEEN ARRANGED FOR 1500 [employer]
--- NOTE | 2018-12-21 15:44 | NUR ---
NURSE NOTES: discharge order in, pt to return to [facility], Brother and family aware of return, ID band and IV removed, Vitals WNL, pt has no orientation and is non-verbal, will continue hospital meds, report given to manuel.
--- NOTE | 2018-12-23 10:43 | Discharge Summary ---
Discharge Summary Discharge Summary _ DATE OF ADMISSION: 12/15/2018 DATE OF DISCHARGE: 12/21/2018 DISCHARGED BY: Dr. Donovan REASON FOR ADMISSION: , 88 years old male with past medical history of hypertensive cardiovascular disease . history of atrial fibrillation, status post subdural hematoma, Parkinson disease, Alzheimer disease, dysphasia, G-tube , DNR status, presented with worsening jaundice. Patient nonverbal by himself and unable to provide any information. Upon evaluation patient was tachycardic, tachypneic ,required supplemental oxygen and had low-grade fever. Laboratory workup revealed leukocytosis WBC 17.9, stable hemoglobin and hematocrit. Platelet count 71 . INR 1.1. Urinalysis with pyuria, hematuria ,+2 protein and occasional bacteria. BUN 22, creatinine 1.0. Stable electrolytes. Lactic acid 1.8. Total bilirubin 5.6, direct bilirubin 4.7. AST 80, ALT 164. Lipase 1152 . Ammonia 11 . Troponin - 0.005 Albumin 2.7 . EKG revealed atrial fibrillation with rapid ventricular response Chest x-ray demonstrated bilateral basilar infiltrates, possibly left-sided pleural effusion. Patient received fluid bolus per severe sepsis protocol , pancultured, started on empiric antibiotic and admitted for further management CONSULTANTS: GI specialist Dr. Stewart surgery Dr. Mcfadden [facility]: Patient admitted to telemetry floor. Patient started on IV fluids and empiric antibiotics. Patient was kept in n.p.o. DVT prophylaxis provided. CT scan of the abdomen and pelvis revealed cholelithiasis. Thick-walled gallbladder and periappendiceal inflammation were suspicious for acute cholecystitis. No biliary ductal dilatation demonstrated Mildly prominent peripancreatic lymph nodes, possibly reactive related to the above Bilateral basilar pulmonary parenchymal atelectasis and possible consolidation Equivocal slight infiltration of the right lower quadrant mesenteric fat; normal appendix. Cardiomegaly. Subsequently MRI of the abdomen revealed mild ectasia of the extra hepatic bile ducts and central intrahepatic bile ducts, without definite downstream obstructive lesion. Nonspecific smooth tapered narrowing of the common hepatic duct, with suggestion of mild wall thickening, not appeared to be obstructive. This could represent a mild inflammatory stricture or could be due to mural neoplasm. Thick-walled gallbladder, with stones and pericholecystic edema, also described on recent CT scan, and concerning for acute cholecystitis. GI specialist and surgeon closely followed. MRCP did not reveal common bile duct obstruction, and ERCP planned prior, was canceled. Leukocytosis resolved, labs improved. Surgeon recommended, given age history clinical improvement hold on cholecystectomy and continue with conservative medical management. LFT trended down to normal. Lipase down to normal. Total bilirubin from 5 5.6 down to 1.1 and direct bilirubin from 4.7 down to 0.7. Patient was slowly started on G tube feeding with strict aspiration precaution. Patient was able to tolerate tube feeding. Tube feeding was provided as per registered dietitian recommendation as to type of formula and desired rate. GI prophylaxis provided Bowel regimen instituted. Hemoglobin hematocrit were closely monitor his goal to keep hemoglobin above 7 remained stable Blood cultures were negative. Leukocytosis resolved. No fevers. Supplemental oxygen provided as needed to keep pulse oximetry above 92%. Pulmonary toilet was on standby as needed. Renal parameters electrolytes were closely monitored. Electrolytes corrected as needed. Nephrotoxins were avoided. Pain management addressed. Bowel regimen instituted. Platelet count 139 from initial 71. Supportive care provided Patient clinically stabilized and was ready for transfer back to [facility] facility for continuation of care . FINAL DIAGNOSES: Severe sepsis , present on admission Acute cholecystitis Acute gallstone pancreatitis Dehydration Dysphagia, G-tube Chronic atrial fibrillation ( with episode of atrial fibrillation with rapid ventricular response on initial presentation) Alzheimer disease Constipation Jaundice Dementia DISCHARGE MEDICATIONS: See Medication Reconciliation list. DISCHARGE INSTRUCTIONS: Patient was discharged to the retirement facility. Follow up with medical doctor at the facility. I have been assigned to dictate discharge summary for this account. I was not involved in the patient's management. Maisha White NP Dec 23, 2018 10:43
== END 2018-12-21 15:51 | DRG 871 ==
LOC: EDBD 13:10 → EMR 13:54 → 2E 16:23 → EDBEDREQ 18:39 → 2E 12-16 01:43
DX: A41.9 Sepsis, unspecified organism (principal); K85.10 Biliary acute pancreatitis without necrosis or infection; R17 Unspecified jaundice; Z43.1 Encounter for attention to gastrostomy; K80.42 Calculus of bile duct with acute cholecystitis without obstruction; R65.20 Severe sepsis without septic shock; E86.9 Volume depletion, unspecified; Z66 Do not resuscitate; I11.9 Hypertensive heart disease without heart failure; G20 Parkinson's disease; G30.9 Alzheimer's disease, unspecified; F02.80 Dementia in other diseases classified elsewhere, unspecified severity, without behavioral disturbance, psychotic disturbance, mood disturbance, and anxiety; R13.10 Dysphagia, unspecified; E86.0 Dehydration; I48.2 Chronic atrial fibrillation; K59.00 Constipation, unspecified
CPT/HCPCS: 36415; 71045; 74176; 74181; 80048; 80053; 80076; 81003; 82140; 82150; 82248; 82550; 82962; 83605; 83690; 83735; 84484; 85007; 85025; 85610; 85730; 87040; 93005; 96361; 96365; 99291